=== PATIENT | female | born 1950 | race Caucasian/White ===

== ENCOUNTER → 2017-06-06 | Outpatient (CLI) | payer MEDICARE | LOC: RADECHMAIN 12:42 | PROVIDERS: ATTEND Internal Medicine | DX: R00.2 Palpitations (principal) | CPT/HCPCS: 93270; 93271 ==

== ENCOUNTER → 2018-07-19 | Outpatient (CLI) | payer MEDICARE ==
--- NOTE | 2018-07-19 15:05 | XR ---
EXAMINATION TYPE: XR chest 2V DATE OF EXAM: 07/19/2018 COMPARISON: NONE HISTORY: Shortness of breath TECHNIQUE: Frontal and lateral views of the chest are obtained. FINDINGS: Scattered senescent parenchymal changes noted. Hyperinflation compatible with COPD. No evidence for infiltrate. No evidence for atelectasis. Heart size is stable. Mediastinal structures are stable and grossly unremarkable. No evidence for hilar prominence. Degenerative changes dorsal spine. IMPRESSION: 1. No evidence for acute pulmonary disease.
== END | disposition home or self-care (01) ==
LOC: RADXRYALE 14:48
PROVIDERS: ATTEND Internal Medicine
DX: R05 Cough (principal)
CPT/HCPCS: 71046

== ENCOUNTER → 2018-09-27 | Outpatient (CLI) | payer MEDICARE ==
--- NOTE | 2018-09-28 10:01 | MM ---
Reason for exam: screening (asymptomatic). Last mammogram was performed 2 years and 3 months ago. History: Patient is postmenopausal. Took estrogen for 4 months. Took progesterone for 3 months. Physical Findings: A clinical breast exam by your physician is recommended on an annual basis and results should be correlated with mammographic findings. MG Screening Mammo w CAD Bilateral CC and MLO view(s) were taken. Prior study comparison: June 28, 2016, bilateral MG screening mammo w CAD. April 02, 2015, bilateral MG screening mammo w CAD. No significant changes when compared with prior studies. ASSESSMENT: Negative, BI-RAD 1 RECOMMENDATION: Routine screening mammogram of both breasts in 1 year.
== END | disposition home or self-care (01) ==
LOC: RADMAMWWP 10:23
PROVIDERS: ATTEND Internal Medicine
DX: Z12.31 Encounter for screening mammogram for malignant neoplasm of breast (principal)
CPT/HCPCS: 77067

== ENCOUNTER 2021-03-23 10:16 | Day surgery (SDC) | payer MEDICARE ==
[2021-03-18 14:14] VITALS: BMI 20.7
[~2021-03-23 10:16] MED LIST: LACTATED RINGERS 1,000 ML IV SCH; LIDOCAINE 1% (10MG/ML) FOR IV START INTRADERMA PRN
[2021-03-23 10:59] VITALS: TEMP 97.3
[2021-03-23] MEDS ORDERED: PROPOFOL 10 MG/ML 20 ML VIAL IV ONE (11:23)
--- NOTE | 2021-03-23 11:26 | P.GSHP ---
History of Present Illness H&P Date: 03/23/21 Chief Complaint: Change in bowel habits 70-year-old female here for colonoscopy. Last colonoscopy 6 years ago. Patient with family history of colon cancer in her father. Over the last few months patient has had increasing constipation. He takes multiple stool softeners. Had to go to the ER for enemas on one occasion. No rectal bleeding. Past Medical History Additional Past Medical History / Comment(s): MS, rapid heart rate History of Any Multi-Drug Resistant Organisms: None Reported Past Surgical History: Tubal Ligation Additional Past Surgical History / Comment(s): hemeriodectomy Additional Past Anesthesia/Blood Transfusion Reaction / Comment(s): Did have problems with her spinal anesthesia. Smoking Status: Never smoker - Past Family History Father Family Medical History: Cancer Additional Family Medical History / Comment(s): Colon Sister(s) Family Medical History: Cancer Additional Family Medical History / Comment(s): Colon Medications and Allergies Home Medications Medication Instructions Recorded Confirmed Type Aspirin 81 mg PO DAILY 03/18/21 03/18/21 History Calcium Carbonate [Calcium] 600 mg PO DAILY 03/18/21 03/18/21 History Docusate [Colace] 100 mg PO DAILY PRN 03/18/21 03/18/21 History Glatiramer Acetate 0 mg SQ MOWEFR 03/18/21 03/18/21 History polyethylene glycoL 3350 [Miralax] 17 gm PO DAILY PRN 03/18/21 03/18/21 History Allergies Allergy/AdvReac Type Severity Reaction Status Date / Time codeine Allergy Rash/Hives Verified 03/23/21 10:44 ibuprofen Allergy Rash/Hives Verified 03/23/21 10:44 Sulfa (Sulfonamide Allergy Rash/Hives Verified 03/23/21 10:44 Antibiotics) acetaminophen [From [place]] AdvReac Unknown Verified 03/23/21 10:47 hydrocodone [From [place]] AdvReac Unknown Verified 03/23/21 10:47 NORC AdvReac Unknown Uncoded 03/23/21 10:47 Surgical - Exam Vital Signs Temp Pulse Resp BP Pulse Ox 97.3 F L 75 15 186/86 99 03/23/21 10:57 03/23/21 10:57 03/23/21 10:57 03/23/21 10:57 03/23/21 10:57 Physical exam: General: Well-developed, well-nourished HEENT: Normocephalic, sclerae nonicteric Abdomen: Nontender, nondistended Extremities: No edema Neuro: Alert and oriented Assessment and Plan (1) Change in bowel habits Narrative/Plan: Proceed with colonoscopy at this time Current Visit: Yes Status: Acute Code(s): R19.4 - CHANGE IN BOWEL HABIT SNOMED Code(s): 986794785
--- NOTE | 2021-03-23 11:42 | P.PCN ---
Date of Procedure: 03/23/21 Procedure(s) Performed: PREOPERATIVE DIAGNOSIS: Change in bowel habits POSTOPERATIVE DIAGNOSIS: Normal exam PROCEDURE: Colonoscopy ANESTHESIA: MAC SURGEON: Jamal Eduardo M.D. SPECIMENS: None ENDOSCOPIC PROCEDURE: The patient was placed on the endoscopy table in the left decubitus position. The Olympus colonoscope was inserted into the anus and passed under direct visualization to the base of the cecum. The appendiceal orifice was visualized. From that point the scope was slowly withdrawn inspecti ng all surfaces carefully. There were no neoplastic inflammatory or polypoid lesions throughout the cecum, ascending, transverse, descending, sigmoid and rectum. There was no visible diverticulosis noted. Digital rectal examination was normal. The patient was taken to the recovery room in stable condition per anesthesia guidelines. RECOMMENDATIONS: Resume diet. Increased stool softeners. Follow-up colonoscopy 5-10 years.
[2021-03-23 11:49] VITALS: BP 108/69; PULSE 69; RESP 16
== END 2021-03-23 12:19 | disposition home or self-care (01) ==
LOC: ORWHC2ENDO 10:16
PROVIDERS: ATTEND Surgery
DX: R19.4 Change in bowel habit (principal); I10 Essential (primary) hypertension; I47.1 Supraventricular tachycardia; G35 Multiple sclerosis; Z79.899 Other long term (current) drug therapy; Z88.5 Allergy status to narcotic agent; Z88.2 Allergy status to sulfonamides; Z80.0 Family history of malignant neoplasm of digestive organs
CPT/HCPCS: 45378; J2704

== ENCOUNTER → 2021-07-01 | Outpatient (CLI) | payer MEDICARE ==
--- NOTE | 2021-07-02 11:04 | MM ---
Reason for exam: screening (asymptomatic). Last mammogram was performed 2 years and 9 months ago. History: Patient is postmenopausal. Took estrogen for 4 months. Took progesterone for 3 months. Physical Findings: A clinical breast exam by your physician is recommended on an annual basis and results should be correlated with mammographic findings. MG 3D Screening Mammo W/Cad Bilateral CC and MLO view(s) were taken. Prior study comparison: September 27, 2018, bilateral MG screening mammo w CAD. June 28, 2016, bilateral MG screening mammo w CAD. The breast tissue is extremely dense which could obscure a lesion on mammography. Finding: There is a 36 mm obscured oval mass in the upper outer quadrant, posterior position of the left breast. New finding and more defined since September 27, 2018 and June 28, 2016. ASSESSMENT: Incomplete: need additional imaging evaluation, BI-RAD 0 RECOMMENDATION: Ultrasound of the left breast. [facility] will attempt to contact patient to return for ultrasound.
== END | disposition home or self-care (01) ==
LOC: RADMAMWWP 13:44
PROVIDERS: ATTEND Internal Medicine
DX: Z12.31 Encounter for screening mammogram for malignant neoplasm of breast (principal); N63.21 Unspecified lump in the left breast, upper outer quadrant
CPT/HCPCS: 77063; 77067

== ENCOUNTER → 2021-07-13 | Outpatient (CLI) | payer MEDICARE ==
--- NOTE | 2021-07-13 10:23 | USB ---
Reason for exam: additional evaluation requested from abnormal screening. History: Patient is postmenopausal. Took estrogen for 4 months. Took progesterone for 3 months. Physical Findings: Nurse did not find any significant physical abnormalities on exam. US Breast Workup Limited LT Technologist: Miryam Herman Left limited breast ultrasound including focal area of concern, retroareolar and axilla demonstrates dense tissue visualized at 2 o'clock. Scanned 12-3 o'clock. These results were verbally communicated with the patient and result sheet given to the patient on 07/13/21. ASSESSMENT: Benign, BI-RAD 2 RECOMMENDATION: Return to routine screening mammogram schedule for both breasts. Patient should continue monthly self breast exams. A negative report should not preclude additional follow up of suspicious palpable abnormalities.
== END | disposition home or self-care (01) ==
LOC: RADUSWWP 09:21
PROVIDERS: ATTEND Internal Medicine
DX: R92.8 Other abnormal and inconclusive findings on diagnostic imaging of breast (principal)

== ENCOUNTER 2022-06-09 06:45 | Observation (INO) | payer MEDICARE ==
--- NOTE | 2022-06-09 07:31 | ED ---
General Adult HPI - General Chief complaint: Chest Pain Stated complaint: SOB Time Seen by Provider: 06/09/22 07:07 Source: patient, RN notes reviewed Mode of arrival: ambulatory Limitations: no limitations - History of Present Illness Initial comments: Patient is a pleasant 72-year-old female presenting to the emergency department with concerns with chest discomfort. Onset of symptoms was 3 or 4 days ago. Symptoms are somewhat intermittent. Discomfort feels like pressure. Patient does have associated dyspnea. No associated nausea or diaphoresis. No history of similar symptoms previously. Currently symptoms are mild. - Related Data Home Medications Medication Instructions Recorded Confirmed Aspirin 81 mg PO DAILY 03/18/21 03/18/21 Calcium Carbonate [Calcium] 600 mg PO DAILY 03/18/21 03/18/21 Docusate [Colace] 100 mg PO DAILY PRN 03/18/21 03/18/21 Glatiramer Acetate 0 mg SQ MOWEFR 03/18/21 03/18/21 polyethylene glycoL 3350 [Miralax] 17 gm PO DAILY PRN 03/18/21 03/18/21 Allergies Allergy/AdvReac Type Severity Reaction Status Date / Time ciprofloxacin Allergy Swelling Verified 06/09/22 06:51 codeine Allergy Rash/Hives Verified 06/09/22 06:49 ibuprofen Allergy Rash/Hives Verified 06/09/22 06:49 Sulfa (Sulfonamide Allergy Rash/Hives Verified 06/09/22 06:49 Antibiotics) acetaminophen [From [place]] AdvReac Unknown Verified 06/09/22 06:49 hydrocodone [From [place]] AdvReac Unknown Verified 06/09/22 06:49 NORC AdvReac Unknown Uncoded 06/09/22 06:49 Review of Systems ROS Statement: Those systems with pertinent positive or pertinent negative responses have been documented in the HPI. ROS Other: All systems not noted in ROS Statement are negative. Constitutional: Denies: fever Eyes: Denies: eye pain ENT: Denies: ear pain Respiratory: Reports: as per HPI. Denies: cough Cardiovascular: Reports: as per HPI, chest pain Endocrine: Denies: fatigue Gastrointestinal: Denies: abdominal pain, nausea Genitourinary: Denies: dysuria Past Medical History Past Medical History: Atrial Fibrillation, Hypertension Additional Past Medical History / Comment(s): MS, rapid heart rate History of Any Multi-Drug Resistant Organisms: None Reported Past Surgical History: Tubal Ligation Additional Past Surgical History / Comment(s): hemeriodectomy Additional Past Anesthesia/Blood Transfusion Reaction / Comment(s): Did have problems with her spinal anesthesia. Past Psychological History: No Psychological Hx Reported Smoking Status: Never smoker Past Alcohol Use History: None Reported Past Drug Use History: None Reported - Past Family History Father Family Medical History: Cancer Additional Family Medical History / Comment(s): Colon Sister(s) Family Medical History: Cancer Additional Family Medical History / Comment(s): Colon General Exam Limitations: no limitations General appearance: alert, in no apparent distress Head exam: Present: normocephalic Eye exam: Present: normal appearance Neck exam: Present: normal inspection Respiratory exam: Present: normal lung sounds bilaterally Cardiovascular Exam: Present: regular rate, normal rhythm, normal heart sounds Expanded Peripheral pulses: 2+: Radial (R), Femoral (R), Dorsalis Pedis (R), Dorsalis Pedis (L) GI/Abdominal exam: Present: soft. Absent: tenderness Extremities exam: Present: normal inspection. Absent: pedal edema, calf tenderness Neurological exam: Present: alert Psychiatric exam: Present: normal affect, normal mood Skin exam: Present: normal color Course Vital Signs 06/09/22 06/09/22 06/09/22 06:47 06:59 08:55 Temperature 97.9 F Pulse Rate 58 L 55 L Respiratory 18 16 18 Rate Blood Pressure 167/83 151/74 O2 Sat by Pulse 100 100 Oximetry EKG Findings - EKG Comments: EKG Findings:: Sinus bradycardia with a rate of 56. - EKG Results: EKG: interpreted by ERMD (Left axis.), sinus rhythm, normal QRS, normal ST/T EKG shows: bradycardia Medical Decision Making - Medical Decision Making Patient reevaluated and resting comfortably in bed. Patient updated on results and plan. Case was discussed with Dr. sung, who will admit covering hospital observation call - Lab Data Result diagrams: 06/09/22 07:48 06/09/22 07:48 Lab Results 06/09/22 06/09/22 06/09/22 Range/Units 07:48 07:48 07:48 WBC 5.2 (3.8-10.6) k/uL RBC 4.57 (3.80-5.40) m/uL Hgb 14.0 (11.4-16.0) gm/dL Hct 40.3 (34.0-46.0) % MCV 88.1 (80.0-100.0) fL MCH 30.7 (25.0-35.0) pg MCHC 34.8 (31.0-37.0) g/dL RDW 12.8 (11.5-15.5) % Plt Count 136 L (150-450) k/uL MPV 8.8 Neutrophils % 53 % Lymphocytes % 36 % Monocytes % 6 % Eosinophils % 2 % Basophils % 1 % Neutrophils # 2.8 (1.3-7.7) k/uL Lymphocytes # 1.9 (1.0-4.8) k/uL Monocytes # 0.3 (0-1.0) k/uL Eosinophils # 0.1 (0-0.7) k/uL Basophils # 0.0 (0-0.2) k/uL PT 10.8 (9.0-12.0) sec INR 1.0 (<1.2) APTT 27.2 (22.0-30.0) sec D-Dimer 0.21 (<0.60) mg/L FEU Sodium 134 L (137-145) mmol/L Potassium 4.6 (3.5-5.1) mmol/L Chloride 100 (98-107) mmol/L Carbon Dioxide 27 (22-30) mmol/L Anion Gap 7 mmol/L BUN 12 (7-17) mg/dL Creatinine 0.53 (0.52-1.04) mg/dL Est GFR (CKD-EPI)AfAm >90 (>60 ml/min/1.73 sqM) Est GFR (CKD-EPI)NonAf >90 (>60 ml/min/1.73 sqM) Glucose 90 (74-99) mg/dL Calcium 9.3 (8.4-10.2) mg/dL Magnesium 1.9 (1.6-2.3) mg/dL Total Bilirubin 1.0 (0.2-1.3) mg/dL AST 30 (14-36) U/L ALT 16 (4-34) U/L Alkaline Phosphatase 66 (38-126) U/L Troponin I (0.000-0.034) ng/mL Total Protein 7.0 (6.3-8.2) g/dL Albumin 4.4 (3.5-5.0) g/dL 06/09/22 Range/Units 07:48 WBC (3.8-10.6) k/uL RBC (3.80-5.40) m/uL Hgb (11.4-16.0) gm/dL Hct (34.0-46.0) % MCV (80.0-100.0) fL MCH (25.0-35.0) pg MCHC (31.0-37.0) g/dL RDW (11.5-15.5) % Plt Count (150-450) k/uL MPV Neutrophils % % Lymphocytes % % Monocytes % % Eosinophils % % Basophils % % Neutrophils # (1.3-7.7) k/uL Lymphocytes # (1.0-4.8) k/uL Monocytes # (0-1.0) k/uL Eosinophils # (0-0.7) k/uL Basophils # (0-0.2) k/uL PT (9.0-12.0) sec INR (<1.2) APTT (22.0-30.0) sec D-Dimer (<0.60) mg/L FEU Sodium (137-145) mmol/L Potassium (3.5-5.1) mmol/L Chloride (98-107) mmol/L Carbon Dioxide (22-30) mmol/L Anion Gap mmol/L BUN (7-17) mg/dL Creatinine (0.52-1.04) mg/dL Est GFR (CKD-EPI)AfAm (>60 ml/min/1.73 sqM) Est GFR (CKD-EPI)NonAf (>60 ml/min/1.73 sqM) Glucose (74-99) mg/dL Calcium (8.4-10.2) mg/dL Magnesium (1.6-2.3) mg/dL Total Bilirubin (0.2-1.3) mg/dL AST (14-36) U/L ALT (4-34) U/L Alkaline Phosphatase (38-126) U/L Troponin I <0.012 (0.000-0.034) ng/mL Total Protein (6.3-8.2) g/dL Albumin (3.5-5.0) g/dL - Radiology Data Interpreted by me: Chest x-ray shows no acute process Disposition Clinical Impression: Chest pain Disposition: ADMITTED IP TO THIS HOSP Is patient prescribed a controlled substance at d/c from ED?: No Referrals: Jackie Hatch MD [Primary Care Provider] - 1-2 days Time of Disposition: 09:10
[2022-06-09 07:59] LABS: Basophils % (A) 1 %; Eosinophils # (A) 0.1 k/uL (0-0.7); Eosinophils % (A) 2 %; HCT 40.3 % (34.0-46.0); Lymphocytes # (A) 1.9 k/uL (1.0-4.8); Lymphocytes % (A) 36 %; MCH 30.7 pg (25.0-35.0); MCHC 34.8 g/dL (31.0-37.0); MCV 88.1 fL (80.0-100.0); Mean Platelet Volume 8.8; Monocytes # (A) 0.3 k/uL (0-1.0); Monocytes % (A) 6 %; Neutrophils # (A) 2.8 k/uL (1.3-7.7); Neutrophils % (A) 53 %; Platelet Count 136 k/uL (150-450); RBC 4.57 m/uL (3.80-5.40); RDW 12.8 % (11.5-15.5); WBC 5.2 k/uL (3.8-10.6)
--- NOTE | 2022-06-09 08:06 | XR ---
EXAMINATION TYPE: XR chest 2V DATE OF EXAM: 06/09/2022 COMPARISON: NONE HISTORY: Chest pain TECHNIQUE: Frontal and lateral views of the chest are obtained. FINDINGS: There is no focal air space opacity, pleural effusion, or pneumothorax seen. The cardiac silhouette size is within normal limits. The osseous structures are intact. IMPRESSION: No acute cardiopulmonary process.
[2022-06-09 08:15] LABS: ALT 16 U/L (4-34); AST 30 U/L (14-36); African American GFR (CKD) >90 (>60 ml/min/1.73 sqM); Albumin 4.4 g/dL (3.5-5.0); Alkaline Phosphatase 66 U/L (38-126); Anion Gap 7 mmol/L; Blood Urea Nitrogen 12 mg/dL (7-17); Calcium 9.3 mg/dL (8.4-10.2); Carbon Dioxide 27 mmol/L (22-30); Chloride 100 mmol/L (98-107); Glucose 90 mg/dL (74-99); Magnesium 1.9 mg/dL (1.6-2.3); Non-African American GFR(CKD) >90 (>60 ml/min/1.73 sqM); Sodium 134 mmol/L (137-145)
[2022-06-09 08:24] LABS: Potassium 4.6 mmol/L (3.5-5.1)
[2022-06-09 08:32] LABS: Partial Thromboplastin Time 27.2 sec (22.0-30.0); Prothrombin Time 10.8 sec (9.0-12.0)
[2022-06-09] MEDS ORDERED: NITROGLYCERIN SL TABS 0.4 MG TAB SUBLINGUAL PRN (09:11)
[2022-06-09] MEDS ORDERED: MELATONIN 3 MG TABLET PO PRN (10:41)
[2022-06-09] MEDS ORDERED: ONDANSETRON 4 MG/2 ML VIAL IVP PRN (10:41)
[2022-06-09] MEDS ORDERED: NALOXONE 0.4 MG/ML 1 ML VIAL IVP PRN (10:41)
--- NOTE | 2022-06-09 10:41 | P.HPIM ---
History of Present Illness H&P Date: 06/09/22 Patient is a 72-year-old female with prior A. fib, glaucoma, and MS on disease modifying medications who presented to the ER with complaints of chest pain for 5 days duration. In the ER she was found to be mildly hypertensive with a systolic blood pressure in the 160s. Initial laboratory analysis was unremarkable. EKG showed sinus bradycardia at a rate of [address]-T wave changes. Chest x-ray showed no acute process. Patient seen and examined at bedside. Starting 5 days ago had chest pain adn shortness of breath. Was sen by Dr. Hatch and BP was noted to be high and she wanted her to see Dr. Walker and have an EKG but was unable to get in until next week. Dr. Hatch started metorpolol this week, has been on this in the past but then Dr. Walker took her off this medication a few years ago. Chest pain is retrostenal and is there constantly and feels like an ache, full dose Aspirin did help a little when she took it. Feeling SOB most of time. Shortness of breath woke her up from sleep at 5 am this morning. Does not get worse with ambulation. Decreased energy, no nuasea, no numbness or tingling, no diaphoresis. Started a new medicine for glaucoma. 10-14 days ago was diagnosed with sinus infection and completed 5 days of zithromax starting on 05/31/22 No hx of prior heart hug with MS flair. Father- HTN, high platelets Pertinent positives and negatives as discussed in HPI, a complete review of systems was performed and all other systems are negative. Vital signs reviewed General: nontoxic, no distress, appears at stated age Derm: warm, dry Head: atraumatic, normocephalic, symmetric Eyes: EOMI, no lid lag, anicteric sclera, pupils equal round reactive to light ENT: Nose and ears atraumatic, no thrush, no pharyngeal erythema Neck: No thyromegaly, no cervical lymphadenopathy, trachea midline, supple Mouth: no lip lesion, mucus membranes moist Cardiovascular: S1S2 with fixed split S2, no murmur, positive posterior tibial pulse bilateral, no edema, capillary refill less than 2 seconds Lungs: clear to auscultation bilateral, no rhonchi, no rales, no wheeze, no accessory muscle use Abdominal: soft, nontender to palpation, no guarding, no appreciable organomegaly, normal bowel sounds Ext: no gross muscle atrophy, muscle strength 5 out of 5 in all 4 extremities, no contractures Neuro: CN II-XII grossly intact, no focal neuro deficits Psych: Alert, oriented, appropriate affect Assessment/Plan: Atypical chest pain - cycle troponins - ASA, lipitor, BB - Cardio recs - NPO after midnight - tele - echo in AM HTN - conitnue metoprolol - follow BP Glaucoma - outpatient follow-up The patient is admitted with an anticipated less than 2 midnight stay for evaluation of chest pain. DVT prophylaxis: SCDs Discussed with: Patient and Anticipated discharge date: in AM Anticipated discharge place: Home A total of 65 minutes was spent on the care of this complex patient more than 50% of the time was spent in counseling and care coordination. Past Medical History Past Medical History: Atrial Fibrillation, Hypertension Additional Past Medical History / Comment(s): MS, rapid heart rate, Glaucoma History of Any Multi-Drug Resistant Organisms: None Reported Past Surgical History: Tubal Ligation Additional Past Surgical History / Comment(s): hemeriodectomy Additional Past Anesthesia/Blood Transfusion Reaction / Comment(s): Did have problems with her spinal anesthesia. Past Psychological History: No Psychological Hx Reported Smoking Status: Never smoker Past Alcohol Use History: None Reported Past Drug Use History: None Reported - Past Family History Father Family Medical History: Cancer Additional Family Medical History / Comment(s): Colon Sister(s) Family Medical History: Cancer Additional Family Medical History / Comment(s): Colon Medications and Allergies Home Medications Medication Instructions Recorded Confirmed Type Aspirin 81 mg PO DAILY 03/18/21 03/18/21 History Calcium Carbonate [Calcium] 600 mg PO DAILY 03/18/21 03/18/21 History Docusate [Colace] 100 mg PO DAILY PRN 03/18/21 03/18/21 History Glatiramer Acetate 0 mg SQ MOWEFR 03/18/21 03/18/21 History polyethylene glycoL 3350 [Miralax] 17 gm PO DAILY PRN 03/18/21 03/18/21 History Allergies Allergy/AdvReac Type Severity Reaction Status Date / Time ciprofloxacin Allergy Swelling Verified 06/09/22 10:32 codeine Allergy Rash/Hives Verified 06/09/22 10:32 ibuprofen Allergy Rash/Hives Verified 06/09/22 10:32 Sulfa (Sulfonamide Allergy Rash/Hives Verified 06/09/22 10:32 Antibiotics) acetaminophen [From [place]] AdvReac Unknown Verified 06/09/22 10:32 hydrocodone [From [place]] AdvReac Unknown Verified 06/09/22 10:32 [facility]C AdvReac Unknown Uncoded 06/09/22 06:49 Physical Exam Osteopathic Statement: *. No significant issues noted on an osteopathic structural exam other than those noted in the History and Physical/Consult. Vitals: Vital Signs Temp Pulse Resp BP Pulse Ox 06/09/22 09:31 98.0 F 60 18 136/72 100 06/09/22 08:55 55 L 18 151/74 100 06/09/22 06:59 16 06/09/22 06:47 97.9 F 58 L 18 167/83 100 Intake and Output 06/08/22 06/09/22 06/09/22 22:59 06:59 14:59 Other: Weight 54.431 kg 54.431 kg Results CBC & Chem 7: 06/09/22 07:48 06/09/22 07:48 Labs: Abnormal Lab Results - Last 24 Hours (Table) 06/09/22 06/09/22 Range/Units 07:48 07:48 Plt Count 136 L (150-450) k/uL Sodium 134 L (137-145) mmol/L
--- NOTE | 2022-06-10 08:21 | P.CRDCN ---
History of Present Illness History of present illness: HISTORY OF PRESENT ILLNESS: This is a 72-year-old female with a past medical history significant for paroxysmal atrial fibrillation, multiple sclerosis, and moderate mitral regurgitation. Patient follows in the office with Dr. Walker. We have been asked to see the patient in consultation for chest pain. Patient examined at the bedside. Patient states that she has been having shortness of breath and chest pain since Monday. She states that she woke up Monday morning with chest pain. She states the pain was in the middle to the upper part of her chest. She de nied any nausea or vomiting. She denied any radiation of the pain. She describes the pain as a pressure type sensation. She also reports feeling short of breath at that time. She states the chest pain comes and goes and nothing really makes it better. She also states there is nothing specific that makes it worse. She reports her shortness of breath has been intermittent since Monday as well. She is currently laying flat in bed and appears to be comfortable. She states that she went to see her primary care physician on Monday as she has noticed some high blood pressure readings at home with a systolic in the 160s and diastolic in the 100s. She states that she was started on metoprolol and her primary care physician recommended that she didn't to see her workforce consultant. However there were no appointments available until next week. The patient states her symptoms got a little bit worse yesterday so she decided to come to the emergency room for further evaluation. The patient denies any history of coronary artery disease or congestive heart failure. She is a nonsmoker. * EKG reveals sinus mechanism with no signs of acute ischemia. Initial EKG shows borderline ST elevation, however improved on repeat EKG. * Chest xray negative for acute process * Laboratory data: WBC 5.2. Hemoglobin 14.0. Platelet count 136. D-dimer 0.21. Sodium 134. Potassium 4.6. BUN 12. Creatinine 0.53. Troponin negative 3. * Current home cardiac medications include metoprolol 25 mg daily * Most recent echocardiogram obtained in February 2022 revealed ejection fraction 55%, moderate mitral regurgitation and [id number]-[id number] tricuspid regurgitation, trace aortic regurgitation * Patient underwent nuclear stress test in June 2017 which was negative for ischemia REVIEW OF SYSTEMS: At the time of my exam: CONSTITUTIONAL: Denies fever or chills. HEENT: Denies blurred vision, vision changes, or eye pain. Denies hemoptysis CARDIOVASCULAR: Denies chest pain. Denies orthopnea. Denies PND. Denies palpitations RESPIRATORY: Denies shortness of breath. GASTROINTESTINAL: Denies abdominal pain. Denies nausea or vomiting. HEMATOLOGIC: Denies bleeding disorders. GENITOURINARY: Denies any blood in urine. SKIN: Denies pruitis. Denies rash. PHYSICAL EXAM: VITAL SIGNS: Reviewed. GENERAL: Well-developed in no acute distress. HEENT: Head is normocephalic. Pupils are equal, round. Sclerae anicteric. Mucous membranes of the mouth are moist. Neck supple. No JVD or thyromegaly LUNGS: Respirations even and unlabored. Lungs essentially clear to auscultation bilaterally. HEART: Regular rate and rhythm. S1 and S2 heard. Systolic murmur noted. ABDOMEN: Soft. Nondistended. Nontender. EXTREMITIES: Normal range of motion. No clubbing or cyanosis. Peripheral pulses intact. No lower extremity edema NEUROLOGIC: Awake and alert. Oriented x 3. ASSESSMENT: Shortness of breath x 1 week Chest pain, atypical, troponin negative x 3 Hypertension, uncontrolled Paroxysmal atrial fibrillation, not on anticoagulation outpatient per Dr. Walker Valvular heart disease including moderate mitral regurgitation Multiple sclerosis PLAN: Obtain 2D echo to assess cardiac structure and function Add lisinopril for optimal blood pressure control Check lipid panel Continue to monitor blood pressure Patient to undergo stress echo today Further recommendations pending patient course Nurse practitioner note has been reviewed by physician. Signing provider agrees with the documented findings, assessment, and plan of care. Past Medical History Past Medical History: Atrial Fibrillation, Hypertension Additional Past Medical History / Comment(s): MS, rapid heart rate, Glaucoma History of Any Multi-Drug Resistant Organisms: None Reported Past Surgical History: Tubal Ligation Additional Past Surgical History / Comment(s): hemeriodectomy Additional Past Anesthesia/Blood Transfusion Reaction / Comment(s): Did have pr oblems with her spinal anesthesia. Past Psychological History: No Psychological Hx Reported Smoking Status: Never smoker Past Alcohol Use History: None Reported Past Drug Use History: None Reported - Past Family History Father Family Medical History: Cancer Additional Family Medical History / Comment(s): Colon Sister(s) Family Medical History: Cancer Additional Family Medical History / Comment(s): Colon Medications and Allergies Home Medications Medication Instructions Recorded Confirmed Type Glatiramer Acetate 40 mg SQ MOWEFR 03/18/21 06/09/22 History Latanoprost/Pf [Latanoprost 0.005% 1 drop BOTH EYES HS 06/09/22 06/09/22 History Eye Drop] Metoprolol Succinate (ER) [Toprol 25 mg PO DAILY 06/09/22 06/09/22 History Xl] Allergies Allergy/AdvReac Type Severity Reaction Status Date / Time ciprofloxacin Allergy Swelling Verified 06/09/22 10:32 codeine Allergy Rash/Hives Verified 06/09/22 10:32 ibuprofen Allergy Rash/Hives Verified 06/09/22 10:32 Sulfa (Sulfonamide Allergy Rash/Hives Verified 06/09/22 10:32 Antibiotics) acetaminophen [From [place]] AdvReac Unknown Verified 06/09/22 10:32 hydrocodone [From [place]] AdvReac Unknown Verified 06/09/22 10:32 NORC AdvReac Unknown Uncoded 06/09/22 06:49 Physical Exam Vitals: Vital Signs Temp Pulse Pulse Resp BP BP Pulse Ox 06/10/22 02:50 97.7 F 62 16 163/84 98 06/09/22 20:00 57 L 18 06/09/22 19:03 97.7 F 57 L 18 156/85 100 06/09/22 16:18 99 06/09/22 15:00 97.6 F 57 L 17 155/53 100 06/09/22 09:31 98.0 F 60 18 136/72 100 06/09/22 08:55 55 L 18 151/74 100 Intake and Output 06/09/22 06/10/22 06/10/22 22:59 06:59 14:59 Other: # Voids 2 Results 06/09/22 07:48 06/09/22 07:48 Cardiac Enzymes 06/09/22 06/09/22 06/09/22 Range/Units 07:48 07:48 12:39 AST 30 (14-36) U/L Troponin I <0.012 <0.012 (0.000-0.034) ng/mL 06/09/22 Range/Units 15:26 AST (14-36) U/L Troponin I <0.012 (0.000-0.034) ng/mL Coagulation 11/24/22 Range/Units 07:48 PT 10.8 (9.0-12.0) sec APTT 27.2 (22.0-30.0) sec CBC 06/09/22 Range/Units 07:48 WBC 5.2 (3.8-10.6) k/uL RBC 4.57 (3.80-5.40) m/uL Hgb 14.0 (11.4-16.0) gm/dL Hct 40.3 (34.0-46.0) % Plt Count 136 L (150-450) k/uL Comprehensive Metabolic Panel 06/09/22 Range/Units 07:48 Sodium 134 L (137-145) mmol/L Potassium 4.6 (3.5-5.1) mmol/L Chloride 100 (98-107) mmol/L Carbon Dioxide 27 (22-30) mmol/L BUN 12 (7-17) mg/dL Creatinine 0.53 (0.52-1.04) mg/dL Glucose 90 (74-99) mg/dL Calcium 9.3 (8.4-10.2) mg/dL AST 30 (14-36) U/L ALT 16 (4-34) U/L Alkaline Phosphatase 66 (38-126) U/L Total Protein 7.0 (6.3-8.2) g/dL Albumin 4.4 (3.5-5.0) g/dL Current Medications Generic Name Dose Route Start Last Admin Trade Name Freq PRN Reason Stop Dose Admin Aspirin 81 mg 06/10/22 09:00 Aspirin 81 Mg PO DAILY ELEAZAR Melatonin 3 mg 06/09/22 10:41 Melatonin 3 Mg Tablet PO HS PRN Insomnia Metoprolol Succinate 25 mg 06/10/22 09:00 Metoprolol Succinate (Er) 25 Mg Tab.Er.24h PO DAILY ELEAZAR Naloxone HCl 0.2 mg 06/09/22 10:41 Naloxone 0.4 Mg/Ml 1 Ml Vial IVP Q2M PRN Opioid Reversal Nitroglycerin 0.4 mg 06/09/22 09:11 Nitroglycerin Sl Tabs 0.4 Mg Tab SUBLINGUAL Q5M PRN Chest Pain Ondansetron HCl 4 mg 06/09/22 10:41 Ondansetron 4 Mg/2 Ml Vial IVP Q8HR PRN Nausea And Vomiting Intake and Output 06/09/22 06/10/22 06/10/22 22:59 06:59 14:59 Other: # Voids 2 06/09/22 07:48 06/09/22 07:48
[2022-06-10 08:26] VITALS: RESP 14
[2022-06-10] MEDS ORDERED: METOPROLOL SUCCINATE (ER) 25 MG TAB.ER.24H PO SCH (09:00)
[2022-06-10] MEDS ORDERED: ASPIRIN 81 MG PO SCH (09:00)
[2022-06-10] MEDS ORDERED: lisinopriL 5 MG TAB PO SCH (09:00)
[2022-06-10 09:04] LABS: Chol/HDL Ratio 2.91 Ratio; LDL Cholesterol,Calculated 105.4 mg/dL (0.0-131.0); VLDL Calculation 16.64 mg/dL (5.00-40.00)
--- NOTE | 2022-06-10 11:12 | CA ---
Stress Echo Report Layla Ennis Age: 72 Gender: F : 1950 Exam Date: 06/10/2022 09:28 Exam Location: [facility] Ht (in): 65 Wt (lb): 120 Ordering Physician: Zoila Lackey Referring Physician: [id number] Portable Machine Sander: Gregorio Huizar Technologist Procedure CPT: Indication: LV function ICD-9 Codes: Rhythm: Patient History: Cardiac Medications: Medications in past 24 hours: Contrast: Stress Results Protocol: Naveen Total dose(mL): Exercise Duration (min:sec): Max ST Depression (mm): Angina Score: Rothman Score: METS: 8.3 Resting HR: 76 Resting BP: 142 / 100 Peak HR: 132 Peak BP: 183 / 79 Max Predicted HR: 148 89 % Max Predicted HR Target HR: 126 Double Product: [id number] Stress Summary: BP Response: Reason for Termination: MAX EXERTION/TARGET HR Cardiac Symptoms: CHEST PRESSURE ECG Analysis Resting ECG: Stress ECG: Arrhythmia: Echo Analysis Resting Echo: Peak Echo Analysis: MEASUREMENTS (Male/Female) Normal Values CONCLUSIONS Patient underwent exercise stress echo with a Naveen protocol treadmill stress test. Patient exercised into Stage 2 for a total of 7 minutes and 1 second reaching a total of 8.3 METS. Patient's maximum heart rate was 132 which represented 89 % age- predicted maximum heart rate. Patient did have vague chest pressure with exertion. Stress EKG portion: At baseline patient's EKG showed normal sinus rhythm, normal axis, no significant ST or T wave abnormalities. At peak exercise, EKG showed no significant change from baseline. Stress echo portion: 2-D echocardiogram was performed in the parasternal long, personal short, apical 2 and apical four-chamber views at rest, peak exercise and in recovery. At baseline, echocardiogram showed left ventricular ejection fraction 55% % without wall motion abnormalities. With peak exercise, echocardiogram shows improvement in left ventricular ejection fraction, increase contractility, decrease in left ventricular end systolic dimension without wall motion abnormalities consistent with a normal response to exercise. Conclusions: 1. Normal EKG and echo response to exercise without evidence of inducible ischemia. 2. Vague chest pressure noted with exertion. Clinical correlation recommended 3. Fair Exercise capacity. Dr. Carlos Nemwan DO (Electronically Signed) Final Date: 10 June 2022 11:11
--- NOTE | 2022-06-10 11:28 | CA ---
Transthoracic Echo Report Name: Layla Ennis Age: 72 Gender: F : 1950 Exam Date: 06/10/2022 07:48 Exam Location: [facility] Ht (in): 65 Wt (lb): 120 Ordering Physician: Annika Larios DO Attending/Referring Phys: [id number], Harriet Delicatessen Clerk Janine Fink, PAOLO Procedure CPT: Indications: Chest Pain Cardiac Hx: Technical Quality: Good Contrast 1: Total Dose (mL): Contrast 2: Total Dose (mL): MEASUREMENTS (Male / Female) Normal Values 2D ECHO LV Diastolic Diameter PLAX 4.4 cm 4.2 - 5.9 / 3.9 - 5.3 cm LV Systolic Diameter PLAX 3.0 cm IVS Diastolic Thickness 0.9 cm 0.6 - 1.0 / 0.6 - 0.9 cm LVPW Diastolic Thickness 1.0 cm 0.6 - 1.0 / 0.6 - 0.9 cm LV Relative Wall Thickness 0.4 RV Internal Dim ED PLAX 3.1 cm LA Systolic Diameter LX 2.9 cm 3.0 - 4.0 / 2.7 - 3.8 cm LA Volume 33.6 cm??? 18 - 58 / 22 - 52 cm??? M-MODE Aortic Root Diameter MM 3.4 cm MV E Point Septal Separation 0.2 cm AV Cusp Separation MM 2.1 cm DOPPLER AV Peak Velocity 103.4 cm/s AV Peak Gradient 4.3 mmHg MV Area PHT 2.7 cm??? Mitral E Point Velocity 61.0 cm/s Mitral A Point Velocity 73.9 cm/s Mitral E to A Ratio 0.8 MV Deceleration Time 277.3 ms MV E' Velocity 7.3 cm/s Mitral E to MV E' Ratio 8.3 TR Peak Velocity 189.1 cm/s TR Peak Gradient 14.3 mmHg Right Ventricular Systolic Press 19.1 mmHg FINDINGS Left Ventricle Left ventricular ejection fraction is estimated at 60-65 %. Left ventricular cavity size normal. Mildly increased posterior wall thickness. Right Ventricle Normal right ventricular size and function. Right ventricular systolic pressure within normal limits. Right Atrium Normal right atrial size. Left Atrium Normal left atrial size. Mitral Valve Structurally normal mitral valve. Mild mitral regurgitation. Aortic Valve Trileaflet aortic valve. No aortic valve stenosis or regurgitation. Tricuspid Valve Structurally normal tricuspid valve. Mild tricuspid regurgitation. Pulmonic Valve Trace pulmonic regurgitation. Pericardium Normal pericardium. No pericardial effusion. Aorta Normal size aortic root and proximal ascending aorta. CONCLUSIONS Left ventricular ejection fraction 60-65% Mild mitral regurgitation Mild tricuspid regurgitation RVSP 19 No pericardial effusion Previewed by: Dr. Carlos Newman DO (Electronically Signed) Final Date: 10 June 2022 11:27
[2022-06-10 13:13] VITALS: BP 145/85; PULSE 71; TEMP 98.1
--- NOTE | 2022-06-10 13:22 | P.DS ---
Providers Date of admission: 06/09/22 09:11 Expected date of discharge: 06/10/22 Attending physician: Annika Larios DO Consults: 06/09/22 09:11 Consult Physician Urgent Consulting Provider: Scot England Consult Reason/Comments: cp Do you want consulting provider notified?: Yes 06/10/22 09:07 Consult Physician Routine Consulting Provider: Alesia Campbell Consult Reason/Comments: MS flair Do you want consulting provider notified?: Yes Primary care physician: Jackie Hatch Hospital Course: Discharge Diagnosis: Chest pain, CAD ruled out Accelerated HTN Multiple sclerosis Glaucoma Hospital Course: Patient is a 72-year-old female with prior A. fib, glaucoma, and MS on disease modifying medications who presented to the ER with complaints of chest pain for 5 days duration. In the ER she was found to be mildly hypertensive with a systolic blood pressure in the 160s. Initial laboratory analysis was unremark able. EKG showed sinus bradycardia at a rate of [address]-T wave changes. Chest x-ray showed no acute process. Remainder troponins were negative. She was seen by cardiology. She underwent an echocardiogram which showed a preserved ejection fraction at 50-55%. She underwent a stress test which showed normal response to stress. She was seen by neurology who felt that her chest pain was not related to multiple sclerosis flare her heart. She was determined stable for discharge. This will put her chest pain likely was coming from accelerated hypertension. She had just recently been started on metoprolol by her primary care physician and cardiology added lisinopril. Follow-up: Dr. Hatch next week, monitor blood pressures, take medications as prescribed. Patient seen and examined at bedside. Feeling better after her dose of metoprolol and lisinopril. Is comfortable going home. Understands the need for follow-up. Vital signs reviewed and stable. General: nontoxic, no distress, appears at stated age Derm: warm, dry Head: atraumatic, normocephalic, symmetric Eyes: EOMI, no lid lag, anicteric sclera Mouth: no lip lesion, mucus membranes moist Cardiovascular: S1S2 reg, no murmur, positive posterior tibial pulse bilateral, Lungs: CTA bilateral, no rhonchi, no rales , no accessory muscle use Abdominal: soft, nontender to palpation, no guarding, no appreciable organomegaly Ext: no gross muscle atrophy, no edema, no contractures Neuro: CN II-XI grossly intact, no focal neuro deficits Psych: Alert, oriented, appropriate affect A total of 27 minutes of time were spent preparing this complex discharge summary. Patient was discharged on 06/10/22. Patient Condition at Discharge: Stable Plan - Discharge Summary New Discharge Prescriptions: New lisinopriL [Zestril] 5 mg PO DAILY #30 tab Continue Glatiramer Acetate 40 mg SQ MOWEFR Metoprolol Succinate (ER) [Toprol XL] 25 mg PO DAILY Latanoprost/Pf [Latanoprost 0.005% Eye Drop] 1 drop BOTH EYES HS Discharge Medication List Glatiramer Acetate 40 mg SQ MOWEFR 03/18/21 [History] Latanoprost/Pf [Latanoprost 0.005% Eye Drop] 1 drop BOTH EYES HS 06/09/22 [History] Metoprolol Succinate (ER) [Toprol XL] 25 mg PO DAILY 06/09/22 [History] lisinopriL [Zestril] 5 mg PO DAILY #30 tab 06/10/22 [Rx] Follow up Appointment(s)/Referral(s): Jackie Hatch MD [Primary Care Provider] - 1-2 days Activity/Diet/Wound Care/Special Instructions: Activity: as tolerated Diet: regular Special Instructions: Monitor blood pressure daily Follow with Dr. Hatch next week
--- NOTE | 2022-06-21 23:54 | P.CNNES ---
History of Present Illness Consult date: 06/10/22 Requesting physician: Annika Larios Reason for Consult: MS Flare up History of Present Illness: Patient is a 72-year-old female with history of multiple sclerosis, came to the hospital yesterday at 6:45 AM for chest pain of 3-4 days duration. Also complained of shortness of breath. Cardiology has been consulted. All workup has been negative including stress test and echo. Therefore neurology was consulted to rule out neurological basis for chest pain related to MS. The patient states she has history of MS for 20 years she presented with right optic neuritis. She has been followed up with Dr. Gregorio Frost at [facility]. Patient has been on Copaxone for last 20 years. Patient at present denies any neuro symptoms. No new numbness tingling, focal weakness, diplopia, vertigo. No symptoms of any MS flareup. Patient states that last Monday she checked her blood pressure was 165/100. She saw her hand carver and was recently started on metoprolol which she took on Monday, Monday, Monday, and yesterday was discontinued after she started having chest tightness and shortness of breath. She denies any history of asthma. Patient states that she is feeling better, and her chest pain is going away and she feels a little short of breath. The chest pain is in the sternal region anteriorly, does not involve the rib cage, that typically occurs with MS hug. Denies any recent travel. Vital signs arrival blood pressure 167/83, which improved to 151/74 and then 136/72. Pulse rate 58 and temperature 97.9. EKG shows sinus bradycardia. Chest x-ray showed no acute cardiopulmonary process. Blood test shows normal CBC, PT/PTT Rama sodium 134 potassium 4.6, normal renal functions, normal hepatic panel. Cholesterol is 186, LDL 15, HDL 64 and triglycerides 83.2. Patient has never smoked, does not drink alcohol, does not use marijuana. Patient's home medications include Copaxone, metoprolol 25 mg daily. patient also takes vitamin D monthly and calcium. She does take baby aspirin every day. Patient states that she was recently started on metoprolol which she took on Monday, Monday, Monday, and yesterday was discontinued after she started having chest tightness and shortness of breath. She denies any history of asthma. Patient states that she has history of glaucoma for which she uses eyedrops. Patient states that she denies any bowel or bladder issues. She can walk without any device. She is slightly forgetful. Review of Systems Constitutional: Denies chills, Denies fever, Denies sweats Eyes: denies blurred vision, denies pain Ears: deny: decreased hearing, earache Ears, nose, mouth and throat: Denies headache, Denies sore throat Cardiovascular: Reports chest pain, Reports shortness of breath, Denies palpitations Respiratory: Denies cough, Denies wheezing Gastrointestinal: Denies abdominal pain, Denies diarrhea, Denies nausea, Denies vomiting Genitourinary: Reports as per HPI Musculoskeletal: Denies myalgias, Denies neck pain Integumentary: Denies pruritus, Denies rash Neurological: Reports as per HPI Psychiatric: Denies anxiety, Denies depression Endocrine: Denies fatigue, Denies weight change Hematologic/Lymphatic: Denies easy bruising Past Medical History Past Medical History: Atrial Fibrillation, Hypertension Additional Past Medical History / Comment(s): MS, rapid heart rate, Glaucoma History of Any Multi-Drug Resistant Organisms: None Reported Past Surgical History: Tubal Ligation Additional Past Surgical History / Comment(s): hemeriodectomy Additional Past Anesthesia/Blood Transfusion Reaction / Comment(s): Did have problems with her spinal anesthesia. Past Psychological History: No Psychological Hx Reported Smoking Status: Never smoker Past Alcohol Use History: None Reported Past Drug Use History: None Reported - Past Family History Father Family Medical History: Cancer Additional Family Medical History / Comment(s): Colon Sister(s) Family Medical History: Cancer Additional Family Medical History / Comment(s): Colon Medications and Allergies Home Medications Medication Instructions Recorded Confirmed Type Glatiramer Acetate 40 mg SQ MOWEFR 03/18/21 06/09/22 History Latanoprost/Pf [Latanoprost 0.005% 1 drop BOTH EYES HS 06/09/22 06/09/22 History Eye Drop] Metoprolol Succinate (ER) [Toprol 25 mg PO DAILY 06/09/22 06/09/22 History XL] lisinopriL [Zestril] 5 mg PO DAILY #30 tab 06/10/22 Rx Allergies Allergy/AdvReac Type Severity Reaction Status Date / Time ciprofloxacin Allergy Swelling Verified 06/09/22 10:32 codeine Allergy Rash/Hives Verified 06/09/22 10:32 ibuprofen Allergy Rash/Hives Verified 06/09/22 10:32 Sulfa (Sulfonamide Allergy Rash/Hives Verified 06/09/22 10:32 Antibiotics) acetaminophen [From [place]] AdvReac Unknown Verified 06/09/22 10:32 hydrocodone [From [place]] AdvReac Unknown Verified 06/09/22 10:32 NORC AdvReac Unknown Uncoded 06/09/22 06:49 Physical Examination - Vital Signs Vital Signs: Vital Signs Temp Pulse Pulse Resp BP BP Pulse Ox 06/10/22 07:00 97.8 F 70 14 158/89 99 06/10/22 02:50 97.7 F 62 16 163/84 98 06/09/22 20:00 57 L 18 06/09/22 19:03 97.7 F 57 L 18 156/85 100 06/09/22 16:18 99 06/09/22 15:00 97.6 F 57 L 17 155/53 100 06/09/22 09:31 98.0 F 60 18 136/72 100 Intake and Output 06/09/22 06/10/22 06/10/22 22:59 06:59 14:59 Other: # Voids 2 Patient is an elderly female, very pleasant, in no acute distress. Patient is alert awake oriented to time place and person. Speech and language f unctions are normal. Patient can name and repeat very well. No aphasia or dysarthria. Attention, concentration and fund of knowledge is adequate. On cranial nerve examination, pupils are equal, round and reacting to light, visual barrios are full on confrontation, with no neglect on double simultaneous depression. Extraocular muscles are intact with no nystagmus. Face is symmetric, tongue protrudes to the midline. Palatal elevation and sensation normal, hearing and shoulder shrug normal, facial sensation normal. On muscle strength testing, there is no pronator drift and the strength is normal in arms and legs distally and proximally. Deep tendon reflexes are symmetric, 2 all over and plantars are flat. Sensory to touch is equal with no neglect on double simultaneous stimulation. Cerebellar function showed no ataxia for [id number] testing. No dysdiadochokinesia. No ataxia for [id number] testing on either side. Tone and bulk of muscles normal. Gait deferred.. On general examination, there is no carotid bruit or murmur, S1-S2 audible. Chest is clear on consultation. Abdomen is soft nontender. No organomegaly, bowel sounds present. Peripheral pulses are present. No edema. Results - Laboratory Findings CBC and BMP: 06/09/22 07:48 06/09/22 07:48 Abnormal Lab Findings: Abnormal Labs 06/09/22 06/09/22 06/09/22 07:48 07:48 07:48 Plt Count 136 L Sodium 134 L HDL Cholesterol 64.00 H Assessment and Plan Assessment: * Multiple sclerosis, currently in remission. Patient takes Copaxone. * Chest pain, shortness of breath, most likely not neurological in origin. * Accelerated hypertension Plan: * Neurologically patient is stable. Her chest pain/shortness of breath is not related to anything neurological. Probably related to some uncontrolled blood pressure or other cardiopulmonary causes. * Patient will continue Copaxone. Patient follows up with Dr. Gregorio Frost at [facility]. * Treatment of hypertension as per IM and cardiology. * Neurologically clear for discharge. Discussed with primary physician. * Thank you for the consult.
== END 2022-06-10 14:07 | disposition home or self-care (01) ==
LOC: EC 06:45 → 6NMEDSUR 09:11
PROVIDERS: ADMIT Internal Medicine; ATTEND Internal Medicine
DX: R07.89 Other chest pain (principal); R06.02 Shortness of breath; R00.1 Bradycardia, unspecified; I48.0 Paroxysmal atrial fibrillation; I10 Essential (primary) hypertension; I34.0 Nonrheumatic mitral (valve) insufficiency; G35 Multiple sclerosis; H40.9 Unspecified glaucoma; H46.9 Unspecified optic neuritis; Z98.51 Tubal ligation status; Z98.890 Other specified postprocedural states; Z80.0 Family history of malignant neoplasm of digestive organs; Z82.49 Family history of ischemic heart disease and other diseases of the circulatory system; Z79.82 Long term (current) use of aspirin; Z79.899 Other long term (current) drug therapy; Z88.6 Allergy status to analgesic agent; Z88.1 Allergy status to other antibiotic agents; Z88.5 Allergy status to narcotic agent; Z88.2 Allergy status to sulfonamides; Z91.09 Other allergy status, other than to drugs and biological substances
CPT/HCPCS: 99285; 36415; 94760; 93005; 93306; 93351; 85379; 80061; 80053; 83735; 84484; 85025; 85610; 85730; 71046; G0378 ×2

== ENCOUNTER → 2022-07-26 | Outpatient (CLI) | payer MEDICARE ==
--- NOTE | 2022-07-26 11:06 | BD ---
EXAMINATION TYPE: Axial Bone Density DATE OF EXAM: 07/26/2022 COMPARISON: BASELINE CLINICAL HISTORY: 72 years old Female. ICD-10 CODE: N95.8 OTHER SPECIFIED MENOPAUSAL AND PERIMENOPAU SANDRA DISORDER Height: 64 Weight: 122 FRAX RISK QUESTIONS: Family History (Parent hip fracture): NO History of Fracture in Adulthood: YES RT RIB 2017 Secondary Osteoporosis: NO Rheumatoid Arthritis: NO RISK FACTORS HISTORY OF: Family History of Osteoporosis: YES MOTHER, AUNT , SISTER Active: YES Diet low in dairy products/other sources of calcium: NO Postmenopausal woman: YES Lost more than 2 inches in height since high school: NO Frequent falls: NO Poor Health: NO MEDICATIONS: Additional Medications: YES MS MEDS , HBP , EYE MEDS , CALCIUM , VIT D Additional History: YES MS EXAM MEASUREMENTS: Bone mineral densitometry was performed using the [employer] System. Bone mineral density as measured about the Lumbar spine is: ----- L1-L4(G/cm2): 0.900 T Score Values are as follows: ----- L1: -2.5 ----- L2: -2.3 ----- L3: -2.4 ----- L4: -2.3 ----- L1-L4: -2.3 Bone mineral density decreased -9.1% as of 06/08/2009 Bone mineral density about the R hip (g/cm2): 0.689 Bone mineral density about the L hip (g/cm2): 0.688 T Score values are as follows: -----R Neck: -2.4 -----L Neck: -2.3 -----R Total: -2.5 -----L Total: -2.5 Bone mineral density decreased -10.8% as of 06/08/2009 FRAX%s: The graph provided illustrates a 20.9% chance for a major osteoporotic fx and a 5.8% chance f or the hips probability for fx in 10 years time. IMPRESSION: Osteopenia (T Score between -2.5 and -1). There is slightly increased risk of fracture and the patient may be considered for treatment. Re-Screen 2-5 years. NOTE: T-SCORE=SD OF THE YOUNG ADULT MEAN.
--- NOTE | 2022-07-27 07:47 | MM ---
Reason for Exam: Screening (asymptomatic). Last mammogram was performed 1 year(s) and 1 month(s) ago. Patient History: Menarche at age 14. First Full-Term at age 29. Postmenopausal. Estrogen for 4 months. Progesterone for 3 months. Risk Values: Analisa 5 year model risk: 1.8%. NCI Lifetime model risk: 4.6%. Prior Study Comparison: 06/28/2016 Bilateral Screening Mammogram, [facility]. 09/27/2018 Bilateral Screening Mammogram, [facility]. 07/01/2021 Bilateral Screening Mammogram, [facility]. Tissue Density: The breast tissue is extremely dense which could obscure a lesion on mammography. Findings: Analyzed By CAD. There is no suspicious group of microcalcifications or new suspicious mass in either breast. Overall Assessment: Negative, BI-RAD 1 Management: Screening Mammogram of both breasts in 1 year. A clinical breast exam by your physician is recommended on an annual basis and results should be correlated with mammographic findings. [facility] will attempt to contact patient to return for supplemental views and ultrasound if indicated. Electronically signed and approved by: Kurt Howard DO
== END | disposition home or self-care (01) ==
LOC: RADMAMWWP 09:49
PROVIDERS: ATTEND Internal Medicine
DX: Z12.31 Encounter for screening mammogram for malignant neoplasm of breast (principal); M81.0 Age-related osteoporosis without current pathological fracture; M85.89 Other specified disorders of bone density and structure, multiple sites; Z78.0 Asymptomatic menopausal state
CPT/HCPCS: 77063; 77067; 77080

== ENCOUNTER → 2023-01-25 | Outpatient (CLI) | payer MEDICARE ==
--- NOTE | 2023-02-11 15:21 | MR ---
EXAMINATION TYPE: MR thoracic spine wo/w con DATE OF EXAM: 01/25/2023 3:26 PM COMPARISON: 01/24/2021 INDICATION: Patient age:Female; 72 years old; Reason for study: G35 MS; PHH. MS. Most recent MRI done at [facility] TECHNIQUE: Multi planar, multi sequence imaging was performed utilizing: T1-weighted, short-tau inver jacquelyn recovery and T2-weighted of the thoracic spine. The patient was not given Gadolinium. IV Contrast: 5.5 cc Gadavist FINDINGS: Alignment: Alignment is within normal limits. Vertebral bodies have preserved heights. Spinal cord: Spinal cord is within normal limits for signal. No abnormal postcontrast. Discs/Osseous structures: Multilevel disc degeneration changes with osteophyte formation and disc spa ce narrowing with disc desiccation are not significantly changed from 01/24/2021. No evidence for sign ificant neural foraminal stenosis. The spinal canal is patent. T6-T7 central disc protrusion which impresses upon the spinal cord. Spinal cord signal is maintained. Similar findings on 2020 exam. Perineural cysts at T7-T8 on the right. No abnormal postcontrast. IMPRESSION: 1. No evidence for significant spinal canal or neural foraminal stenosis. 2. T6-T7 central disc protrusion which impresses upon the spinal cord. Spinal cord signal is maintai vasiliy. This is similar to 2020. 3. No Abnormal postcontrast enhancement.
== END | disposition home or self-care (01) ==
LOC: RADMRIMAIN 14:05
DX: G35 Multiple sclerosis (principal); M51.24 Other intervertebral disc displacement, thoracic region
CPT/HCPCS: 72157; A9585

== ENCOUNTER → 2023-02-06 | Outpatient (CLI) | payer MEDICARE ==
--- NOTE | 2023-02-11 16:18 | MR ---
EXAMINATION TYPE: MR brain/cspine wo/w DATE OF EXAM: 02/06/2023 9:32 PM CLINICAL INDICATION:Female, 72 years old with history of G35; MS. COMPARISON: 01/27/2021 and 01/24/2021 TECHNIQUE: Multiplanar, multisequence images of the brain and brainstem is performed. Multi planar, multi sequence imaging was performed utilizing: T1-weighted, T2-weighted, and turbo inv ersion recovery imaging of the cervical spine. MR IV Contrast: 5.5 cc Gadavist FINDINGS: BRAIN: Mild progression of white matter changes some of which is orthogonal to the ventricles compatible wit h multiple sclerosis. Some millimeters changes are more pronounced while others are new. No abnormal postcontrast enhancement. Ventricular dilation in proportion to cerebral atrophy changes. Diffusion weighted images demonstrate no evidence of a recent infarct or other diffusion abnormality. There is no extra-axial fluid. The ventricular system and cisternal spaces are normal in size and appearance. The brain volume is age appropriate. Midline structures demonstrate normal morphology. The craniocervical junction appears within normal limits. The dural venous sinuses appear patent. Post contrast images demonstrate no abnormal enhancement The bone marrow signal is within normal limits. Paranasal sinuses and mastoid air cells: Mild scattered paranasal sinus disease. Visualized orbits: Orbital contents are intact. C-SPINE: Alignment: The cervical vertebral bodies have preserved heights. Alignment is within normal limits gi marshall patient positioning. Bones: Multilevel disc degeneration changes with osteophyte formation disc space narrowing. Disc heather ccation throughout spine. Overall findings are grossly similar prior. Cord: Focus of abnormal cord signal at the level of C4 in the lateral posterior aspect is more pronou nced on today's exam. No abnormal postcontrast enhancement. Discs: Multilevel disc desiccation. C2-C3: No significant disc pathology. The spinal canal is patent. No neural foraminal stenosis. C3-C4: No significant disc pathology. The spinal canal is patent. No neural foraminal stenosis. C4-C5: A disc osteophyte complex is present which minimally narrows the ventral subarachnoid space. No neural foraminal stenosis. C5-C6: A disc osteophyte complex is present which minimally narrows the ventral subarachnoid space. No neural foraminal stenosis. C6-C7: No significant disc pathology. The spinal canal is patent. Bilateral facet and uncovertebral joint arthropathy are present with mild bilateral neural foraminal stenosis. C7-T1: No significant disc pathology. The spinal canal is patent. No neural foraminal stenosis. Other: None. IMPRESSION: 1. No Evidence for active demyelination. There is scattered white matter changes some of which are o rthogonal to the ventricles and have multiple sclerosis morphology. Comparing to prior some areas are more prominent on today's exam while others are new. No evidence of intracranial mass, acute/subacut e infarct, or abnormal enhancement. 2. White matter changes the level of C4 in the right lateral posterior aspect is similar to prior. 3. No new abnormal cord signal within the cervical spine or evidence for active cervical spinal cord evaluation.
== END | disposition home or self-care (01) ==
LOC: RADMRIMAIN 20:45
PROVIDERS: ATTEND Psychiatry & Neurology Neurology
DX: G35 Multiple sclerosis (principal); R90.82 White matter disease, unspecified
CPT/HCPCS: 70553; 72156; A9585

== ENCOUNTER 2023-06-25 12:45 | Emergency (ER) | payer MEDICARE ==
--- NOTE | 2023-06-25 13:20 | XR ---
EXAMINATION TYPE: XR chest 2V DATE OF EXAM: 06/25/2023 COMPARISON: 06/09/2022 HISTORY: 73-year-old female with chest pain TECHNIQUE: PA and lateral views FINDINGS: Slight dextro convex scoliosis upper thoracic spine. Heart normal size. Aorta and pulmonary vasculatu re within normal limits. Mild hyperinflation. No consolidation or pleural effusion. IMPRESSION: COPD. Mild upper thoracic scoliosis. No acute cardiopulmonary process.
[2023-06-25 13:22] VITALS: TEMP 98.3
[2023-06-25 13:30] LABS: Basophils % (A) 0 %; Eosinophils # (A) 0.1 k/uL (0-0.7); Eosinophils % (A) 2 %; HCT 39.7 % (34.0-46.0); HGB 13.5 gm/dL (11.4-16.0); Lymphocytes # (A) 1.8 k/uL (1.0-4.8); Lymphocytes % (A) 30 %; MCH 30.5 pg (25.0-35.0); MCHC 34.1 g/dL (31.0-37.0); MCV 89.5 fL (80.0-100.0); Mean Platelet Volume 7.9; Monocytes # (A) 0.3 k/uL (0-1.0); Monocytes % (A) 5 %; Neutrophils # (A) 3.7 k/uL (1.3-7.7); Neutrophils % (A) 62 %; Platelet Count 183 k/uL (150-450); RBC 4.44 m/uL (3.80-5.40); RDW 12.9 % (11.5-15.5); WBC 5.9 k/uL (3.8-10.6)
--- NOTE | 2023-06-25 13:36 | ED ---
Chest Pain HPI - General Source: patient, family, RN notes reviewed Mode of arrival: ambulatory Limitations: no limitations - History of Present Illness MD Complaint: chest pain <Lovely Wright - Last Filed: 06/25/23 13:35> <Kurt Parker - Last Filed: 06/25/23 15:43> - General Chief Complaint: Chest Pain Stated Complaint: right chest pain and back Time Seen by Provider: 06/25/23 13:35 - History of Present Illness Initial Comments: This is a 73-year-old female who presents to the emergency department for chest pain. Describes it as sharp and primarily right sided. She does have some radiation into the back. Symptoms began around 5 AM. Reports a history of atrial fibrillation and mitral regurgitation, but denies any history of coronary artery disease. She does follow in the office with Dr. Walker, cardiology. (Lovely Wright) I do agree with the above patient describes the pain is sharp right-sided with some radiation around to the back no other places currently at rest she's pain- free (Kurt Parker) - Related Data Home Medications Medication Instructions Recorded Confirmed Glatiramer Acetate 40 mg SQ MOWEFR 03/18/21 06/09/22 Latanoprost/Pf [Latanoprost 0.005% 1 drop BOTH EYES HS 06/09/22 06/09/22 Eye Drop] Metoprolol Succinate (ER) [Toprol 25 mg PO DAILY 06/09/22 06/09/22 XL] Previous Rx's Medication Instructions Recorded lisinopriL [Zestril] 5 mg PO DAILY #30 tab 06/10/22 Allergies Allergy/AdvReac Type Severity Reaction Status Date / Time ciprofloxacin Allergy Swelling Verified 06/25/23 13:04 codeine Allergy Rash/Hives Verified 06/25/23 13:04 ibuprofen Allergy Rash/Hives Verified 06/25/23 13:04 Sulfa (Sulfonamide Allergy Rash/Hives Verified 06/25/23 13:04 Antibiotics) acetaminophen [From [facility]] AdvReac Unknown Verified 06/25/23 13:04 hydrocodone [From [facility]] AdvReac Unknown Verified 06/25/23 13:04 [facility]C AdvReac Unknown Uncoded 06/25/23 13:04 Review of Systems ROS Other: All systems not noted in ROS Statement are negative. <Lovely Wright - Last Filed: 06/25/23 13:35> ROS Other: All systems not noted in ROS Statement are negative. <KeithKurt - Last Filed: 06/25/23 15:43> ROS Statement: Those systems with pertinent positive or pertinent negative responses have been documented in the HPI. EKG Findings - EKG Results: EKG: interpreted by ERMD (EKG interpreted by me sinus rhythm a 67. Interval 181 QRS duration 90 QT is/QTC 412/428 left exodeviation low-voltage evidence of right ventricular conduction delay evidence of nonspecific anteroseptal changes this is compared with EKGs dated 06/06 22 and 05/2522 showing similar) <Kurt Parker - Last Filed: 06/25/23 15:43> Past Medical History Past Medical History: Atrial Fibrillation, Hypertension Additional Past Medical History / Comment(s): MS, rapid heart rate, Glaucoma, pelvic fracture 2022 History of Any Multi-Drug Resistant Organisms: None Reported Past Surgical History: Tubal Ligation Additional Past Surgical History / Comment(s): hemeriodectomy, Additional Past Anesthesia/Blood Transfusion Reaction / Comment(s): Did have problems with her spinal anesthesia. Past Psychological History: No Psychological Hx Reported Smoking Status: Never smoker Past Alcohol Use History: None Reported Past Drug Use History: None Reported - Past Family History Father Family Medical History: Cancer Additional Family Medical History / Comment(s): Colon Sister(s) Family Medical History: Cancer Additional Family Medical History / Comment(s): Colon <Lovely Wright - Last Filed: 06/25/23 13:35> General Exam Limitations: no limitations <Lovely Wright - Last Filed: 06/25/23 13:35> General appearance: alert, in no apparent distress Head exam: Present: atraumatic, normocephalic, normal inspection Eye exam: Present: normal appearance, PERRL, EOMI. Absent: scleral icterus, conjunctival injection, periorbital swelling ENT exam: Present: normal exam, mucous membranes moist Neck exam: Present: normal inspection, full ROM, other. Absent: tenderness, meningismus, lymphadenopathy Respiratory exam: Present: normal lung sounds bilaterally, chest wall tenderness (Distal tenderness palpation on the right costal sternal margin as well as over the right paraspinous muscles of the mid back in the region of the right scapula ). Absent: respiratory distress, wheezes, rales, rhonchi, stridor Cardiovascular Exam: Present: regular rate, normal rhythm, normal heart sounds. Absent: systolic murmur, diastolic murmur, rubs, gallop, clicks GI/Abdominal exam: Present: soft, normal bowel sounds. Absent: distended, tenderness, guarding, rebound, rigid Extremities exam: Present: normal inspection, full ROM, normal capillary refill. Absent: tenderness, pedal edema, joint swelling, calf tenderness Back exam: Present: normal inspection Neurological exam: Present: alert, oriented X3, CN II-XII intact Psychiatric exam: Present: normal affect, normal mood Skin exam: Present: warm, dry, intact, normal color. Absent: rash <Kurt Parker - Last Filed: 06/25/23 15:43> - General Exam Comments Initial Comments: Visual Physical Exam Vital signs reviewed General: Well-appearing, nontoxic, no acute distress. Head: Normocephalic, atraumatic Eyes: PERRLA, EOMI ENT: Airway patent Chest: Nonlabored breathing Skin: No visual rash, normal skin tone Neuro: Alert and oriented 3 Musculoskeletal: No gross abnormalities (Lovely Wright) This is a well-developed well-nourished awake alert oriented 4 female (Kurt Parker) Course Vital Signs 06/25/23 06/25/23 13:00 14:27 Temperature 98.3 F Pulse Rate 73 Respiratory 18 18 Rate Blood Pressure 155/80 160/92 O2 Sat by Pulse 99 100 Oximetry Chest Pain [facility] <Lovely Wright - Last Filed: 06/25/23 13:35> <Kurt Parker - Last Filed: 06/25/23 15:43> - [facility] I performed the QuickNote portion of this chart. Signed Lovely Wright PA-C. (Lovely Wright) I did discuss findings with patient and her . Patient be discharged the presentation is consistent with chest wall pain. Was pt. sent in by a medical professional or institution (, PAVAN, HANDBAG FRAMES INSPECTOR, urgent care, hospital, or usp...) When possible be specific @ -No Did you speak to anyone other than the patient for history (EMS, parent, family, police, friend...)? What history was obtained from this source @ -Justin May 2022 charts reviewed including EKGs Did you review nursing and triage notes (agree or disagree)? Why? @ -I reviewed and agree with nursing and triage notes Were old charts reviewed (outside hosp., previous admission, EMS record, old EKG, old radiological studies, urgent care reports/EKG's, usp records)? Report findings @ -No old charts were reviewed Differential Diagnosis (chest pain, altered mental status, abdominal pain women, abdominal pain men, vaginal bleeding, weakness, fever, dyspnea, syncope, headache, dizziness, GI bleed, back pain, seizure, CVA, palpatations, mental health, musculoskeletal)? @ -Chest pain EKG interpreted by me (3pts min.). @ -As above EKG interpreted by me sinus rhythm of 67. Interval 181 QRS duration 90 QT since QTC 412/428 left exodeviation low-voltage possible right ventricular conduction today nonspecific anteroseptal configuration no changes from EKG dated 05/2422 and 05/2522. X-rays interpreted by me (1pt min.). @ -X-ray interpreted by me no acute process CT interpreted by me (1pt min.). @ -None done U/S interpreted by me (1pt. min.). @ -None done What testing was considered but not performed or refused? (CT, X-rays, U/S, labs)? Why? @ -None What meds were considered but not given or refused? Why? @ -None Did you discuss the management of the patient with other professionals (professionals i.e. , PA, HANDBAG FRAMES INSPECTOR, lab, RT, psych nurse, social work case manager, telephone assembler, teacher, labor relations officer, transplant case manager)? Give summary @ -No Was smoking cessation discussed for >3mins.? @ -No Was critical care preformed (if so, how long)? @ -No Were there social determinants of health that impacted care today? How? (Homelessness, low income, unemployed, alcoholism, drug addiction, transportation, low edu. Level, literacy, decrease access to med. care, penitentiary, rehab)? @ -No Was there de-escalation of care discussed even if they declined (Discuss DNR or withdrawal of care, Hospice)? DNR status @ -No What co-morbidities impacted this encounter? (DM, HTN, Smoking, COPD, CAD, Cancer, CVA, ARF, Chemo, Hep., AIDS, mental health diagnosis, sleep apnea, morbid obesity)? @ -Street of atrial fibrillation] Was patient admitted / discharged? Hospital course, mention meds given and route, prescriptions, significant lab abnormalities, going to OR and other pertinent info. @ -hospital course he was discharged home with follow-up with her doctor. The presentation is consistent with chest wall pain Undiagnosed new problem with uncertain prognosis? @ -No Drug Therapy requiring intensive monitoring for toxicity (Heparin, Nitro, Insulin, Cardizem)? @ -No Were any procedures done? @ -No Diagnosis/symptom? @ -Costochondritis, chest wall pain Acute, or Chronic, or Acute on Chronic? @ -Acute Uncomplicated (without systemic symptoms) or Complicated (systemic symptoms)? @ -default Side effects of treatment? @ -No Exacerbation, Progression, or Severe Exacerbation? @ -No Poses a threat to life or bodily function? How? (Chest pain, [place], [place], pneumonia, PE, COPD, DKA, ARF, appy, cholecystitis, CVA, Diverticulitis, Homicidal, Suicidal, threat to staff... and all critical care pts) @ -No (Kurt Parker) Disposition <Lovely Wright - Last Filed: 06/25/23 13:35> Is patient prescribed a controlled substance at d/c from ED?: No Decision Date: 06/25/23 Decision Time: 15:43 <Kurt Parker - Last Filed: 06/25/23 15:43> Clinical Impression: Costochondritis, Chest wall syndrome Disposition: HOME SELF-CARE Condition: Good Instructions (If sedation given, give patient instructions): Costochondritis (ED), Chest Wall Pain (ED) Additional Instructions: Warm compresses, Tylenol for pain, follow-up with her doctor Referrals: Jackie Hatch MD [Primary Care Provider] - 1-2 days
[2023-06-25 13:42] LABS: Partial Thromboplastin Time 27.4 sec (22.0-30.0); Prothrombin Time 10.8 sec (10.0-12.5)
[2023-06-25 13:45] LABS: ALT 21 U/L (4-34); AST 26 U/L (14-36); African American GFR (CKD) >90 (>60 ml/min/1.73 sqM); Albumin 4.4 g/dL (3.5-5.0); Alkaline Phosphatase 194 U/L (38-126); Anion Gap 10 mmol/L; Blood Urea Nitrogen 12 mg/dL (7-17); Calcium 9.8 mg/dL (8.4-10.2); Carbon Dioxide 26 mmol/L (22-30); Chloride 96 mmol/L (98-107); Glucose 96 mg/dL (74-99); Magnesium 1.9 mg/dL (1.6-2.3); Non-African American GFR(CKD) >90 (>60 ml/min/1.73 sqM); Potassium 4.1 mmol/L (3.5-5.1); Sodium 132 mmol/L (137-145); Total Bilirubin 0.8 mg/dL (0.2-1.3); Total Protein 7.7 g/dL (6.3-8.2)
[2023-06-25 15:41] VITALS: BP 154/83; PULSE 71; RESP 20
== END 2023-06-25 15:57 | disposition home or self-care (01) ==
LOC: EC 12:45
DX: M94.0 Chondrocostal junction syndrome [Tietze] (principal); I10 Essential (primary) hypertension; I48.91 Unspecified atrial fibrillation; J44.9 Chronic obstructive pulmonary disease, unspecified; Z79.899 Other long term (current) drug therapy; Z88.2 Allergy status to sulfonamides; Z88.5 Allergy status to narcotic agent; Z88.8 Allergy status to other drugs, medicaments and biological substances
CPT/HCPCS: 36415; 71046; 80053; 83735; 84484; 85025; 85610; 85730; 93005; 99285

== ENCOUNTER → 2023-10-02 | Outpatient (CLI) | payer MEDICARE ==
--- NOTE | 2023-10-04 12:54 | MM ---
Reason for Exam: Screening (asymptomatic). Last mammogram was performed 1 year(s) and 2 month(s) ago. Patient History: Menarche at age 14. First Full-Term at age 29. Postmenopausal. Estrogen for 4 months. Progesterone for 3 months. Risk Values: Analisa 5 year model risk: 1.8%. NCI Lifetime model risk: 4.4%. Prior Study Comparison: 09/27/2018 Bilateral Screening Mammogram, [facility]. 07/01/2021 Bilateral Screening Mammogram, [facility]. 07/26/2022 Bilateral MG 3D screening mammo w/cad, [facility]. Tissue Density: The breasts are heterogeneously dense, which may obscure small masses. Findings: Analyzed By CAD. There is no suspicious group of microcalcifications or new suspicious mass. Overall Assessment: Negative, BI-RAD 1 Management: Screening Mammogram of both breasts in [address] [facility] will attempt to contact patient to return for supplemental views and ultrasound if indicated. Patient should continue monthly self-breast exams. A clinical breast exam by your physician is recommended on an annual basis. This exam should not preclude additional follow-up of suspicious palpable abnormalities. Note on Analisa scores and lifetime risk: 1. A Analisa score greater than 3% is considered moderate risk. If this is the case, consider specialist referral to assess eligibility for a risk reducing agent. 2. If overall lifetime risk for the development of breast cancer is 20% or higher, the patient may qualify for future screening with alternating mammogram and breast MRI. Electronically signed and approved by: Kurt Howard DO
== END | disposition home or self-care (01) ==
LOC: RADMAMWWP 13:12
PROVIDERS: ATTEND Internal Medicine
DX: Z12.31 Encounter for screening mammogram for malignant neoplasm of breast (principal); Z78.0 Asymptomatic menopausal state
CPT/HCPCS: 77063; 77067

== ENCOUNTER 2024-08-03 07:38 | Emergency (ER) | payer MEDICARE ==
[2024-08-03 07:43] VITALS: RESP 16; TEMP 98.2
--- NOTE | 2024-08-03 07:58 | ED ---
Abdominal Pain HPI - General Chief Complaint: Abdominal Pain Stated Complaint: R side pain Time Seen by Provider: 08/03/24 07:44 Source: patient, RN notes reviewed Mode of arrival: wheelchair Limitations: no limitations - History of Present Illness Initial Comments: This is a 74-year-old female who presents to the emergency department for abdominal pain. Patient reports right lower quadrant abdominal pain starting 3 days ago. She had an appendectomy on this past year when she was in [place] visiting family. However, states that this pain feels worse. She did start to feel nauseous on the ride here, but has otherwise not had any nausea or vomiting. Denies any diarrhea or constipation. States that she takes MiraLAX which is keeping her bowels regular. Denies any radiation of pain into her back. Denies any fevers or chills. MD Complaint: abdominal pain - Related Data Home Medications Medication Instructions Recorded Confirmed Glatiramer Acetate 40 mg SQ MOWEFR 03/18/21 06/09/22 Latanoprost/Pf [Latanoprost 0.005% 1 drop BOTH EYES HS 06/09/22 06/09/22 Eye Drop] Metoprolol Succinate (ER) [Toprol 25 mg PO DAILY 06/09/22 06/09/22 XL] Previous Rx's Medication Instructions Recorded lisinopriL [Zestril] 5 mg PO DAILY #30 tab 06/10/22 Dicyclomine [Bentyl] 10 mg PO QID PRN #20 capsule 08/03/24 methocarbamoL [Robaxin-750] 750 mg PO QID PRN #30 tab 08/03/24 Allergies Allergy/AdvReac Type Severity Reaction Status Date / Time ciprofloxacin Allergy Swelling Verified 06/25/23 13:04 codeine Allergy Rash/Hives Verified 06/25/23 13:04 ibuprofen Allergy Rash/Hives Verified 06/25/23 13:04 Sulfa (Sulfonamide Allergy Rash/Hives Verified 06/25/23 13:04 Antibiotics) acetaminophen [From [place]] AdvReac Unknown Verified 06/25/23 13:04 hydrocodone [From [place]] AdvReac Unknown Verified 06/25/23 13:04 [facility] AdvReac Unknown Uncoded 06/25/23 13:04 Review of Systems ROS Statement: Those systems with pertinent positive or pertinent negative responses have been documented in the HPI. ROS Other: All systems not noted in ROS Statement are negative. Past Medical History Past Medical History: Atrial Fibrillation, Hypertension Additional Past Medical History / Comment(s): MS, rapid heart rate, Glaucoma, pelvic fracture 2022 History of Any Multi-Drug Resistant Organisms: None Reported Past Surgical History: Appendectomy, Tubal Ligation Additional Past Surgical History / Comment(s): hemeriodectomy, Additional Past Anesthesia/Blood Transfusion Reaction / Comment(s): Did have problems with her spinal anesthesia. Past Psychological History: No Psychological Hx Reported Smoking Status: Never smoker Past Alcohol Use History: None Reported Past Drug Use History: None Reported - Past Family History Father Family Medical History: Cancer Additional Family Medical History / Comment(s): Colon Sister(s) Family Medical History: Cancer Additional Family Medical History / Comment(s): Colon General Exam Limitations: no limitations General appearance: alert, in no apparent distress Head exam: Present: atraumatic, normocephalic, normal inspection Respiratory exam: Present: normal lung sounds bilaterally. Absent: respiratory distress, wheezes, rales, rhonchi, stridor Cardiovascular Exam: Present: regular rate, normal rhythm, normal heart sounds. Absent: systolic murmur, diastolic murmur, rubs, gallop, clicks GI/Abdominal exam: Present: soft, tenderness (RLQ), other (Incisions are clean, dry, and intact. There is no erythema, induration, or drainage.). Absent: distended Neurological exam: Present: alert, oriented X3, CN II-XII intact Psychiatric exam: Present: normal affect, normal mood Course Vital Signs 08/03/24 08/03/24 08/03/24 07:40 09:00 10:50 Temperature 98.2 F 98.2 F Pulse Rate 66 73 Respiratory 16 16 Rate Blood Pressure 150/82 130/65 128/73 O2 Sat by Pulse 97 98 Oximetry Medical Decision Making - Medical Decision Making This is a 74-year-old female who presents to the emergency department for abdominal pain. Was pt. sent in by a medical professional or institution? @ -No Did you speak to anyone other than the patient for history? @ -No Did you review nursing and triage notes? @ -Yes, and I agree, it is accurate with regards to the patient's symptoms. Were old charts reviewed? @ -No Differential Diagnosis? @ -Differential Abdominal Pain Women: Appendicitis, Cholecystitis, diverticulosis, ischemic bowel, pancreatitis, hepatitis, UTI, gastroenteritis, AAA, incarcerated hernia, bowel obstruction, constipation, inflammatory bowel, hepatitis, peptic ulcer disease, splenic infarction, perforated viscus, vulvitis, ovarian torsion, PID, kidney stone, placenta abruption, this is not meant to be an all-inclusive list EKG interpreted by me (3pts min.)? @ -Not obtained X-rays interpreted by me (1pt min.)? @ -Not obtained CT interpreted by me (1pt min.)? @ -CT scan of the abdomen and pelvis obtained. My interpretation identifies no evidence of bowel wall thickening or free air. U/S interpreted by me (1pt. min.)? @ -Not obtained What testing was considered but not performed? (CT, X-rays, U/S, labs)? Why? @ -None What meds were considered but not given? Why? @ -None Did you discuss the management of the patient with other professionals? @ -No Did you reconcile home meds? @ -No Was smoking cessation discussed for >3mins.? @ -No Was critical care preformed (if so, how long)? @ -No Were there social determinants of health that impacted care today? How? (Homelessness, low income, unemployed, alcoholism, drug addiction, transportation, low edu. Level, literacy, decrease access to med. care, assisted, rehab)? @ -No Was there de-escalation of care discussed even if they declined? (Discuss DNR or withdrawal of care, Hospice)? @ -No What co-morbidities impacted this encounter? (DM, HTN, Smoking, COPD, CAD, Cancer, CVA, Hep., AIDS, mental health diagnosis, sleep apnea, morbid obesity)? @ -A-fib, HTN Was patient admitted / discharged? @ -Discharged. Lab work unremarkable. Urinalysis negative for signs of infect ion. CT scan of the abdomen and pelvis reveals no acute process. Patient's incisions were clean, dry, and intact without any signs of infection. The cause of her pain is not entirely clear. It could be musculoskeletal in nature or related to her bowels cramping. Prescription for Bentyl and Robaxin provided to see if that offers any benefit. Otherwise advised follow-up with her PCP. Patient discharged home in stable condition. Case discussed with ED attending Dr. Casey. Return precautions reviewed in depth, the patient is instructed to return to the emergency department with any new, worsening, or concerning symptoms. Patient verbalized understanding. Undiagnosed new problem with uncertain prognosis? @ -None Drug Therapy requiring intensive monitoring for toxicity (Heparin, Nitro, Insulin, Cardizem)? @ -None Were any procedures done? @ -None Diagnosis/symptom? @ -Abdominal pain Acute, or Chronic, or Acute on Chronic? @ -Acute Uncomplicated (without systemic symptoms) or Complicated (systemic symptoms)? @ -Uncomplicated Side effects of treatment? @ -None Exacerbation, Progression, or Severe Exacerbation] @ -Not applicable Poses a threat to life or bodily function? @ -No - Lab Data Result diagrams: 08/03/24 08:04 08/03/24 08:04 Lab Results 08/03/24 08/03/24 08/03/24 Range/Units 08:04 08:04 08:04 WBC 6.9 (3.8-10.6) k/uL RBC 4.53 (3.80-5.40) m/uL Hgb 13.6 (11.4-16.0) gm/dL Hct 40.7 (34.0-46.0) % MCV 89.8 (80.0-100.0) fL MCH 30.0 (25.0-35.0) pg MCHC 33.4 (31.0-37.0) g/dL RDW 13.2 (11.5-15.5) % Plt Count 215 (150-450) k/uL MPV 8.1 Neutrophils % 61 % Lymphocytes % 30 % Monocytes % 6 % Eosinophils % 2 % Basophils % 1 % Neutrophils # 4.2 (1.3-7.7) k/uL Lymphocytes # 2.1 (1.0-4.8) k/uL Monocytes # 0.4 (0-1.0) k/uL Eosinophils # 0.1 (0-0.7) k/uL Basophils # 0.0 (0-0.2) k/uL Sodium 137 (137-145) mmol/L Potassium 4.2 (3.5-5.1) mmol/L Chloride 100 (98-107) mmol/L Carbon Dioxide 29 (22-30) mmol/L Anion Gap 8 mmol/L BUN 12 (7-17) mg/dL Creatinine 0.50 L (0.52-1.04) mg/dL Est GFR (CKD-EPI)AfAm >90 (>60 ml/min/1.73 sqM) Est GFR (CKD-EPI)NonAf >90 (>60 ml/min/1.73 sqM) Glucose 101 H (74-99) mg/dL Plasma Lactic Acid Gregory 0.7 (0.7-2.0) mmol/L Calcium 10.1 (8.4-10.2) mg/dL Total Bilirubin 0.8 (0.2-1.3) mg/dL AST 28 (14-36) U/L ALT 25 (4-34) U/L Alkaline Phosphatase 103 (38-126) U/L Total Protein 7.4 (6.3-8.2) g/dL Albumin 4.4 (3.5-5.0) g/dL Amylase 84 (30-110) U/L Lipase 72 (23-300) U/L Urine Color Urine Appearance (Clear) Urine pH (5.0-8.0) Ur Specific [place] (1.001-1.035) Urine Protein (Negative) Urine Glucose (UA) (Negative) Urine Ketones (Negative) Urine Blood (Negative) Urine Nitrite (Negative) Urine Bilirubin (Negative) Urine Urobilinogen (<2.0) mg/dL Ur Leukocyte Esterase (Negative) Urine RBC (0-5) /hpf Urine WBC (0-5) /hpf Ur Squamous Epith Cells (0-4) /hpf Amorphous Sediment (None) /hpf Urine Mucus (None) /hpf 08/03/24 Range/Units 09:43 WBC (3.8-10.6) k/uL RBC (3.80-5.40) m/uL Hgb (11.4-16.0) gm/dL Hct (34.0-46.0) % MCV (80.0-100.0) fL MCH (25.0-35.0) pg MCHC (31.0-37.0) g/dL RDW (11.5-15.5) % Plt Count (150-450) k/uL MPV Neutrophils % % Lymphocytes % % Monocytes % % Eosinophils % % Basophils % % Neutrophils # (1.3-7.7) k/uL Lymphocytes # (1.0-4.8) k/uL Monocytes # (0-1.0) k/uL Eosinophils # (0-0.7) k/uL Basophils # (0-0.2) k/uL Sodium (137-145) mmol/L Potassium (3.5-5.1) mmol/L Chloride (98-107) mmol/L Carbon Dioxide (22-30) mmol/L Anion Gap mmol/L BUN (7-17) mg/dL Creatinine (0.52-1.04) mg/dL Est GFR (CKD-EPI)AfAm (>60 ml/min/1.73 sqM) Est GFR (CKD-EPI)NonAf (>60 ml/min/1.73 sqM) Glucose (74-99) mg/dL Plasma Lactic Acid Gregory (0.7-2.0) mmol/L Calcium (8.4-10.2) mg/dL Total Bilirubin (0.2-1.3) mg/dL AST (14-36) U/L ALT (4-34) U/L Alkaline Phosphatase (38-126) U/L Total Protein (6.3-8.2) g/dL Albumin (3.5-5.0) g/dL Amylase (30-110) U/L Lipase (23-300) U/L Urine Color Colorless Urine Appearance Turbid H (Clear) Urine pH 7.0 (5.0-8.0) Ur Specific [place] 1.014 (1.001-1.035) Urine Protein Negative (Negative) Urine Glucose (UA) Negative (Negative) Urine Ketones Negative (Negative) Urine Blood Negative (Negative) Urine Nitrite Negative (Negative) Urine Bilirubin Negative (Negative) Urine Urobilinogen <2.0 (<2.0) mg/dL Ur Leukocyte Esterase Negative (Negative) Urine RBC <1 (0-5) /hpf Urine WBC 1 (0-5) /hpf Ur Squamous Epith Cells 2 (0-4) /hpf Amorphous Sediment Occasional H (None) /hpf Urine Mucus Rare H (None) /hpf - Radiology Data Radiology results: report reviewed, image reviewed Disposition Clinical Impression: Abdominal pain Disposition: HOME SELF-CARE Instructions (If sedation given, give patient instructions): Abdominal Pain (ED) Additional Instructions: Return to the emergency department with any new, worsening, or concerning symptoms. Try taking the Bentyl up to 4 times daily to see if that offers any benefit. You can also try taking the Robaxin as 1 to 2 tablets up to 3-4 times daily. The Robaxin will work to relax muscles and the Bentyl will help to relax the muscles in your bowels. Follow up with your primary care provider in 1-2 days. Prescriptions: Dicyclomine [Bentyl] 10 mg PO QID PRN #20 capsule PRN Reason: Gi Upset methocarbamoL [Robaxin-750] 750 mg PO QID PRN #30 tab PRN Reason: Pain Is patient prescribed a controlled substance at d/c from ED?: No Referrals: Jackie Hatch MD [Primary Care Provider] - 1-2 days Time of Disposition: 10:25
[2024-08-03 08:24] LABS: Basophils % (A) 1 %; Eosinophils # (A) 0.1 k/uL (0-0.7); Eosinophils % (A) 2 %; HCT 40.7 % (34.0-46.0); HGB 13.6 gm/dL (11.4-16.0); Lymphocytes # (A) 2.1 k/uL (1.0-4.8); Lymphocytes % (A) 30 %; MCHC 33.4 g/dL (31.0-37.0); MCV 89.8 fL (80.0-100.0); Mean Platelet Volume 8.1; Monocytes # (A) 0.4 k/uL (0-1.0); Monocytes % (A) 6 %; Neutrophils # (A) 4.2 k/uL (1.3-7.7); Neutrophils % (A) 61 %; Platelet Count 215 k/uL (150-450); RBC 4.53 m/uL (3.80-5.40); RDW 13.2 % (11.5-15.5); WBC 6.9 k/uL (3.8-10.6)
[2024-08-03] MEDS: SODIUM CHLORIDE 0.9% 500 ML 500 ML IV STA (08:25)
[2024-08-03] MEDS: HYDROmorphone 0.5 MG/0.5 ML SYRINGE IVP STA ×2 (08:25→10:38)
[2024-08-03 08:34] LABS: ALT 25 U/L (4-34); AST 28 U/L (14-36); African American GFR (CKD) >90 (>60 ml/min/1.73 sqM); Albumin 4.4 g/dL (3.5-5.0); Alkaline Phosphatase 103 U/L (38-126); Amylase 84 U/L (30-110); Anion Gap 8 mmol/L; Blood Urea Nitrogen 12 mg/dL (7-17); Calcium 10.1 mg/dL (8.4-10.2); Carbon Dioxide 29 mmol/L (22-30); Chloride 100 mmol/L (98-107); Glucose 101 mg/dL (74-99); Lipase 72 U/L (23-300); Non-African American GFR(CKD) >90 (>60 ml/min/1.73 sqM); Potassium 4.2 mmol/L (3.5-5.1); Sodium 137 mmol/L (137-145); Total Bilirubin 0.8 mg/dL (0.2-1.3); Total Protein 7.4 g/dL (6.3-8.2)
--- NOTE | 2024-08-03 09:48 | CT ---
EXAMINATION TYPE: CT abdomen pelvis w con DATE OF EXAM: 08/03/2024 9:29 AM COMPARISON: None CLINICAL INDICATION: Female, 74 years old with history of RLQ abdominal pain; RLQ pain, appendix guera jack 07/16/24 TECHNIQUE: Axial CT abdomen pelvis w con;Sagittal and coronal reformats were created on a separate w orkstation. Contrast used:100 mL of Isovue 300 with IV Contrast, (none if empty) Oral contrast used: without Oral Contrast (none if empty) CT DLP: 566 mGycm, Automated exposure control for dose reduction was used. FINDINGS: LOWER CHEST: Unremarkable ABDOMEN LIVER: Unremarkable GALLBLADDER AND BILE DUCTS: Mildly distended. PANCREAS: Unremarkable. SPLEEN: Unremarkable. ADRENAL GLANDS: Indeterminate 10 mm left adrenal nodule. No adrenal nodules. KIDNEYS AND URETERS: No evidence of hydronephrosis or renal calculus. The ureters are unremarkable. PELVIS BLADDER: No evidence for wall thickening or mass given limitations of exam. REPRODUCTIVE: Unremarkable. ABDOMEN & PELVIS STOMACH AND BOWEL: No evidence of bowel obstruction. Appendix is surgically absent. Multiple clips ar e present. No evidence for organizing fluid collection. PERITONEUM/RETROPERITONEUM: No evidence of pneumoperitoneum or free fluid. VASCULATURE: Mild atherosclerotic calcifications are present throughout the abdominal aorta and its b ranches. No evidence of aortic aneurysm. MUSCULOSKELETAL: No acute osseous abnormalities. Mild disc degeneration changes are present throughou t the thoracolumbar spine., remote right inferior pubic ramus fracture with osseous fusion. LYMPH NODES: No gross evidence for lymphadenopathy. SOFT TISSUE/ABDOMINAL WALL: Procedure changes to the anterior wall from prior appendectomy. IMPRESSION: 1. Postappendectomy changes. No organizing fluid collection or free air. No evidence for acute right lower quadrant process. No hydronephrosis or renal calculus. 2. Indeterminate 10 mm left adrenal nodule. [facility], , 08/03/2024 9:46 AM
[2024-08-03 09:56] LABS: Amorphous Sediment,Urine Occasional /hpf; Appearance,Urine Turbid (Clear); Bilirubin,Urine Negative (Negative); Blood,Urine Negative (Negative); Color,Urine Colorless; Glucose,Urine (UA) Negative (Negative); Ketones,Urine Negative (Negative); Leukocyte Esterase,Urine Negative (Negative); Mucus,Urine Rare /hpf; Nitrite,Urine Negative (Negative); Protein,Urine Negative (Negative); RBC,Urine <1 /hpf (0-5); Specific Gravity,Urine 1.014 (1.001-1.035); Squamous Epithelial Cell,Urine 2 /hpf (0-4); Urobilinogen,Urine <2.0 mg/dL (<2.0); WBC,Urine 1 /hpf (0-5)
[2024-08-03] MEDS: ONDANSETRON 4 MG/2 ML VIAL IVP STA (10:38)
[2024-08-03] MEDS: ONDANSETRON 4 MG ODT STARTER PACK 2 TAB BTL PO STA (10:39)
[2024-08-03] MEDS: traMADol 50 MG STARTER PACK 3 TAB BTL PO STA (10:39)
[2024-08-03 10:52] VITALS: BP 128/73; PULSE 73
== END 2024-08-03 10:52 | disposition home or self-care (01) ==
LOC: EC 07:38
DX: R10.31 Right lower quadrant pain (principal); I10 Essential (primary) hypertension; I48.91 Unspecified atrial fibrillation; Z88.2 Allergy status to sulfonamides; Z88.5 Allergy status to narcotic agent; Z88.6 Allergy status to analgesic agent; Z88.8 Allergy status to other drugs, medicaments and biological substances
CPT/HCPCS: 36415; 80053; 82150; 83605; 83690; 85025; 81001; 74177; 99284; 96374; 96375; 96376; 96361; J2405; S0119; J1171; Q9967

== ENCOUNTER → 2024-09-17 | Outpatient (CLI) | payer MEDICARE ==
--- NOTE | 2024-09-17 14:39 | XR ---
EXAMINATION TYPE: XR lumbosacral spine min 4V DATE OF EXAM: 09/17/2024 2:30 PM INDICATION: Patient age:Female; 74 years old; Reason for study: [id number] LBP; [facility]. pain COMPARISON: CT abdomen and pelvis 08/03/2024 TECHNIQUE: Frontal, lateral, bilateral oblique views of the lumbosacral spine were obtained. FINDINGS: There are 6 lumbar type vertebral bodies identified. Progression of anterior wedge compress ion deformity of the L3 vertebral body with approximately 60% height loss and 6 mm of retropulsion vaughn ggested. There is endplate sclerosis. There is normal alignment of the lumbar vertebral bodies. Surgi [place] clips within the right lower abdomen. IMPRESSION: Progression of anterior wedge compression deformity of the L3 vertebral body with approximately 60% h eight loss and 6 mm of retropulsion. Consider further evaluation with MRI. [facility], , 09/17/2024 2:36 PM
== END | disposition home or self-care (01) ==
LOC: RADXRYALE 13:51
PROVIDERS: ATTEND Internal Medicine
DX: S32.030A Wedge compression fracture of third lumbar vertebra, initial encounter for closed fracture (principal); M54.30 Sciatica, unspecified side; X58.XXXA Exposure to other specified factors, initial encounter
CPT/HCPCS: 72110

== ENCOUNTER → 2024-10-04 | Outpatient (CLI) | payer MEDICARE ==
--- NOTE | 2024-10-04 15:36 | MR ---
EXAMINATION TYPE: MR lumbar spine wo con DATE OF EXAM: 10/04/2024 COMPARISON: Lumbar spine x-ray September 17, 2024. CT abdomen and pelvis August 03, 2024 HISTORY: Low back pain that radiates down right leg, hx of pelvic fx. TECHNIQUE: Multiplanar, multisequence imaging of the lumbar spine is performed without IV contrast. FINDINGS: There is transitional type L6 vertebra which is sacralized bilaterally redemonstrated. Sagi ttal images of the lumbar spine show moderate to severe compression type fracture estimated 75% heigh t loss anteriorly at the L3 vertebra from July CT. This is discussed on recent x-ray. Minimal post erior retropulsion of the posterior vertebral body margin mildly effaces the anterior thecal sac grea test inferiorly. There is disc desiccation at the L3-L4 through the L5-L6 levels. Disc space heights are fairly well-preserved. The conus medullaris is normal in position and signal ending inferior L1 l evel. Some heterogeneous increased T2 signal or edema is seen to the L3 vertebra best on STIR images. Axial images show T12-L1 and L1-L2 level to appear within normal limits. Axial images at L2-L3 level mild broad disc bulge minimally effaces the anterior thecal sac. Patent b ilateral neural foramina. Axial images at L3-L4 levels show mild to moderate posterior spur disc complex mildly effacing the an terior thecal sac. The bilateral neural foramina are patent. Mild/moderate facet arthropathy is seen bilaterally. Axial images at the L4-L5 level shows moderate facet arthropathy bilaterally. Spinal canal is effaced along right posterior lateral aspect axial image 22. Mild broad disc bulge minimally effaces the ant erior thecal sac. Bilateral neural foramina are patent. Axial images at L5-L6 level show [id number] facet arthropathy bilaterally. Spinal canal is pres erved. Bilateral neural foramina are patent. Axial images at L6-S1 level appears within normal limits. At least mildly distended bladder is partially imaged. Common bile duct measures 7 mm axial image 34 which is upper limits of normal for patient of this age. IMPRESSION: There is new moderate to severe compression type fracture of L3 vertebra given counting s ystem used on recent x-ray. Slight posterior retropulsion mildly effaces the anterior thecal sac at t his level. Other multilevel degenerative changes are present as detailed above. [facility], , 10/04/2024 3:34 PM
== END | disposition home or self-care (01) ==
LOC: RADMRIMAIN 13:08
PROVIDERS: ATTEND Internal Medicine
DX: S32.030A Wedge compression fracture of third lumbar vertebra, initial encounter for closed fracture (principal); M43.9 Deforming dorsopathy, unspecified; M47.816 Spondylosis without myelopathy or radiculopathy, lumbar region; M51.26 Other intervertebral disc displacement, lumbar region
CPT/HCPCS: 72148

== ENCOUNTER → 2024-10-21 | Outpatient (CLI) | payer MEDICARE ==
--- NOTE | 2024-10-21 16:25 | BD ---
EXAMINATION TYPE: Axial Bone Density DATE OF EXAM: 10/21/2024 CLINICAL HISTORY: 74 years old Female. ICD-10 CODE: N95.8 OTHER SPECIFIED MENOPAUSAL AND PERIMENOPAU SAN95.8 OTHE , Additional History: Height: 62 in Weight: 122 lbs FRAX RISK QUESTIONS: Family History (Parent hip fracture): yes mother History of Fracture in Adulthood: l3 fx age 72; pelvis fx age 72 HISTORY OF: Spine Fracture: l3 fx age 72 EXAM MEASUREMENTS: Bone mineral densitometry was performed using the [employer]. Bone mineral density as measured about the Bone mineral density about the R hip (g/cm2): 0.637 Bone mineral density about the L hip (g/cm2): 0.639 T Score values are as follows: -----R Neck: -2.5 -----L Neck: -2.3 -----R Total: -2.9 -----L Total: -2.9 Z Score values are as follows: -----R Neck: -0.4 -----L Neck: -0.2 -----R Total: -1.0 -----L Total: -1.0 Bone mineral density has: Decreased -7.3% since study of: 07/26/2022 Bone mineral density about the L Wrist (g/cm2): 0.513 T Score values are as follows: -----Dist. R+U: -2.9 -----Prox. R+U: -2.8 -----Radius total: -2.7 Z Score values are as follows: -----Dist. R+U: -0.7 -----Prox. R+U: -0.6 -----Radius total: -0.4 Bone mineral density baseline FRAX%s: The graph provided illustrates a 22.8% chance for a major osteoporotic fx and a 7.0% chance f or the hips probability for fx in 10 years time. IMPRESSION: Osteoporosis (T Score less than -2.5). There is increased fracture risk and therapy is usually indicated based on age. Re-Screen 1-2 years. NOTE: T-SCORE=SD OF THE YOUNG ADULT MEAN. [facility], , 10/21/2024 4:23 PM
== END | disposition home or self-care (01) ==
LOC: RADBDWWP 13:29
PROVIDERS: ATTEND Internal Medicine
DX: M81.0 Age-related osteoporosis without current pathological fracture (principal); N95.8 Other specified menopausal and perimenopausal disorders
CPT/HCPCS: 77080